=== PATIENT | male | born 1965 | race Caucasian/White ===

== ENCOUNTER 2017-12-21 16:19 | Observation (INO) | payer OTHER, SELFPAY ==
[~2017-12-21 16:19] MED LIST: ISOVUE-370 76%-LOCM 1 ML ONE
[2017-12-21] MEDS ORDERED: Nitroglycerin 0.4 MG TAB (25 Tab Bottle) ONE (16:27)
[2017-12-21 16:43] LABS: #Basophils 0.1 thou/uL (0.0-0.2); #Eosinphils 0.2 thou/uL (0.0-0.7); #Lymphocytes 2.5 thou/uL (1.20-3.40); #Monocytes 1.5 thou/uL (0.11-0.59); #Neutrophils 12.3 thou/uL (1.40-6.50); %Basophils 0.4 % (0.0-1.0); %Eosinophils 1.4 % (0.0-10.0); %Lymphocytes 15.1 % (21.0-51.0); %Monocytes 9.1 % (0.0-10.0); %Neutrophils 73.9 % (42.0-75.0); Mean Corpuscular HGB CONC 33.9 g/dL (32.0-36.0); Mean Corpuscular Hemoglobin 28.9 pg (27.0-31.0); Mean Corpuscular Volume 85.3 fL (78.0-98.0); Mean Platelet Volume 8.7 fL (7.4-10.4); Platelet Count 278 thou/uL (130-400); Red Blood Cell (RBC) Count 5.19 mill/uL (4.70-6.10); White Blood Cell (WBC) Count 16.7 thou/uL (4.8-10.8)
--- NOTE | 2017-12-21 16:44 | RAD ---
CHEST ONE VIEW: 12/21/17 HISTORY: Chest pain. COMPARISON: 04/22/16. FINDINGS: Diminished lung volumes due to poor inspiratory effect. Results in crowding of the pulmonary vasculat ure. No definite consolidation or masses. No significant pleural effusion. Normal cardiac silhouette when taking technique into consideration. No pneumothorax or osseous abnormalities. IMPRESSION: Diminished lung volumes, likely due to poor inspiratory effect. POS: [facility]
[2017-12-21] MEDS ORDERED: Ondansetron ODT 4 MG TAB ONE (16:55)
[2017-12-21 16:58] LABS: ALT (SGPT) 49 U/L (8-55); AST (SGOT) 37 U/L (5-34); Albumin 4.8 g/dL (3.5-5.0); Alkaline Phosphatase 83 U/L (40-150); Anion Gap 13 mmol/L (10-20); BUN (Urea Nitrogen) 15 mg/dL (8.9-20.6); Bilirubin, Total 0.7 mg/dL (0.2-1.2); Calc. Creatinine Clearance 0 mL/min (70-130); Calcium 9.7 mg/dL (7.8-10.44); Carbon Dioxide 30 mmol/L (22-29); Chloride 98 mmol/L (98-107); Estimated GFR-MDRD 69; Glucose 272 mg/dL (70-105); Protein, Total 7.8 g/dL (6.0-8.3); Sodium 137 mmol/L (136-145)
[2017-12-21 17:03] LABS: Troponin I Less than 0.010 ng/mL (< 0.028)
[2017-12-21] MEDS ORDERED: Fentanyl 100 MCG/2 ML VIAL ONE ×2 (17:42→18:31)
--- NOTE | 2017-12-21 17:53 | CT ---
CTA THORAX WITH CONTRAST CTA ABDOMEN WITH CONTRAST: DATE: 12/21/17 TIME: 5:18 p.m. (Computed Tomographic Angiography, chest(noncoronary) with contrast material, and image postprocessin g) (Computed Tomographic Angiography, abdomen with contrast material, and image postprocessing) 3D MIP reconstructions. HISTORY: 52-year-old male with chest pain, abdominal pain, abdominal distention, and diaphoresis. Dyspnea. TECHNIQUE: IV injection of iodinated contrast: 100 mL Isovue 370. Arterial phase bolus chasing technique. Scan acquisition from top of top of aortic arch to iliac crests. FINDINGS: There is no aneurysm, dissection, or rupture, of the thoracic aorta or abdominal aorta. There is ecta damien of the ascending aorta, but no significant atherosclerotic plaque is visualized in the aorta. Baljeet ateral renal arteries, superior mesenteric artery, and celiac artery, are also normal in appearance. There is no thrombus in the pulmonic trunk or the left and right main pulmonary arteries, but their p roximal and distal branches cannot be evaluated for pulmonary thromboembolism because the IV contrast bolus was timed for the aorta rather than the pulmonary arteries, and also because of significant br eathing motion artifact. No consolidation, pneumothorax, or pleural effusion. Trachea and left and ri ght mainstem bronchi are patent. Thoracic and visualized upper and mid lumbar vertebral body heights are maintained; no compression fracture. No destructive osseous lesion of the ribs or sternum. Small sliding hiatal hernia. No mediastinal lymphadenopathy. Liver is enlarged and has diffusely low attenu ation representing fatty liver. The gallbladder is very distended, but there is no wall thickening or pericholecystic edema. Pancreas, bilateral kidneys, adrenals, and spleen, are normal. No free fluid identified in the upper and mid abdominal cavity. No small bowel dilation visualized. No pneumoperito neum. No ascites visualized. (please note, pelvis was not included). IMPRESSION: 1. No aortic dissection, aneurysm or rupture. 2. Very distended gallbladder. 3. Hepatic steatosis and hepatomegaly. 4. Small sliding hiatal hernia. jn[] POS: [facility]
[2017-12-21] MEDS ORDERED: Ketorolac Tromethamine 30 MG/ML VIAL ONE (18:49)
[2017-12-21] MEDS ORDERED: Levofloxacin 500 mg/D5W 100 ml Premix Bag ONE (18:49)
[2017-12-21] MEDS ORDERED: Acetaminophen 1,000 MG in Premix Bag 1 BAG IVPB SCH (19:00)
[2017-12-21 19:36] LABS: CK (CPK) 651 U/L (30-200)
[2017-12-21] MEDS ORDERED: Morphine 4 MG/ML Carpuject IVP PRN (19:57)
[2017-12-21] MEDS ORDERED: Dextrose 5% in Water 1,000 ML IV PRN (19:57)
[2017-12-21] MEDS ORDERED: hydrALAZINE 20 MG/ML VIAL SLOW IVP PRN (19:57)
[2017-12-21] MEDS ORDERED: Ondansetron HCl/PF 4 MG/2 ML Vial IVP PRN (19:57)
[2017-12-21] MEDS ORDERED: Dextrose 50% Abboject 50 ML SYRINGE SLOW IVP PRN (19:57)
[2017-12-21] MEDS ORDERED: HumaLOG 300 UNITS/3 ML VIAL SC PRN (19:57)
[2017-12-21] MEDS ORDERED: Morphine 4 MG/ML Carpuject SLOW IVP PRN (20:00)
[2017-12-21] MEDS ORDERED: Enoxaparin Sodium 40 MG/0.4 ML SYRINGE SC SCH (21:00)
--- NOTE | 2017-12-21 21:13 | ULT ---
ULTRASOUND ABDOMEN LIMITED: (RIGHT UPPER QUADRANT) 12/21/17 HISTORY: Right upper quadrant abdominal pain in 52-year-old male. FINDINGS: The study is very limited because patient's inability to suspend respirations, large body habitus, an d inability to be rolled into decubitus positions. The gallbladder is distended and contains a cluste r of calculi, several millimeters in size each, in the dependent portion of the body. Unable to deter mine whether they are mobile or not because of limited mobility. Positive tenderness over the gallbla dder. Gallbladder wall thickness is normal. There is a structure that appears to be a dilated common duct, 8 mm in caliber. Pancreas is not visualized. Hepatic echogenicity is diffusely increased consis tent with fatty liver. There is an intermediate to low echogenicity linear band across the left lobe of the liver. Uncertain whether this is the falciform ligament or a thrombosed vein. No hydronephrosi s of the right kidney. IMPRESSION: 1. Cholelithiasis within a distended gallbladder, with tenderness over the area. 2. Hepatic steatosis and hepatomegaly. 3. Apparently dilated common duct 8 mm, raising the possibility of choledocholithiasis. 4. Linear band across left hepatic lobe. See above comments. KASHIF Albright POS: [facility]
[2017-12-21 22:26] LABS: Lactic Acid 2.9 mmol/L (0.5-2.2)
[2017-12-21] MEDS: Famotidine/PF 20 mg/2ml Vial SLOW IVP SCH (22:43)
[2017-12-21] MEDS: Lactated Ringer's 1,000 ML IV SCH (22:44)
[2017-12-21] MEDS: Acetaminophen 1,000 MG in Premix Bag 1 BAG IVPB SCH (22:44)
[2017-12-21] MEDS: Ketorolac Tromethamine 30 MG/ML VIAL IVP SCH (22:44)
--- NOTE | 2017-12-22 02:28 | HP ---
HISTORY OF PRESENT ILLNESS: A 52-year-old male lives in [facility], single, here with his mother and desmond condon. Patient works in construction. He has had some occasional indigestion and upper abdominal d iscomfort infrequently, but on this occasion after eating salad, cheese and burger, experienced acute onset of upper abdominal pain, epigastric, right upper quadrant with nausea. It hurts with deep jesus athing. He was evaluated in the emergency room and underwent a CT dissection protocol that revealed a very distending gallbladder, hepatomegaly, hepatic steatosis, but no dissection or aneurysm. The p atient subsequently underwent gallbladder ultrasound revealing 8 mm bile duct with multiple stones. Common bile duct was 8 mm. Findings are consistent with acute cholecystitis. White count 16, hemoglobin 15. Sodium 137, BUN an d creatinine 15 and 1.12. Liver function tests essentially normal. ALLERGIES: None. TOBACCO: None. ALCOHOL: None. MEDICATIONS: Metformin 500 b.i.d., hydrochlorothiazide 12.5 mg daily, atorvastatin 10 mg a day. PAST MEDICAL HISTORY: Hypertension, diabetes, elevated cholesterol. Echocardiogram 04/23/2016, Dr. Sher, normal LV function, mild to borderline left atrial dilatation, t race mitral valve regurgitation, mild tricuspid and pulmonary regurgitation. Given that he had admis tod in 2016 where he had chest pain, probably cocaine use. PHYSICAL EXAMINATION: VITAL SIGNS: 140/78, heart rate 80, respiratory rate 20. HEAD, EYES, EARS, NOSE AND THROAT: Unremarkable. Sclerae nonicteric. LUNGS: Clear to auscultation. CARDIAC: Regular rate and rhythm. No murmur or gallop. ABDOMEN: Tender right upper quadrant with guarding, positive Chavira's. EXTREMITIES: Unremarkable. ASSESSMENT AND PLAN: Acute cholecystitis and cholelithiasis. Recommend laparoscopic video cholecyst ectomy. Risk of infection, bleeding, visceral biliary injury explained and he consents. We will alverto n this in the morning.
[2017-12-22] MEDS: Ketorolac Tromethamine 30 MG/ML VIAL IVP SCH ×2 (05:28→11:30)
[2017-12-22] MEDS: Acetaminophen 1,000 MG in Premix Bag 1 BAG IVPB SCH ×2 (05:28→11:31)
[2017-12-22] MEDS: Lactated Ringer's 1,000 ML IV SCH ×4 (05:28→20:38)
[2017-12-22 05:56] LABS: ALT (SGPT) 52 U/L (8-55); AST (SGOT) 34 U/L (5-34); Albumin 4.1 g/dL (3.5-5.0); Alkaline Phosphatase 66 U/L (40-150); Anion Gap 11 mmol/L (10-20); BUN (Urea Nitrogen) 14 mg/dL (8.9-20.6); Bilirubin, Total 1.6 mg/dL (0.2-1.2); Calc. Creatinine Clearance 93 mL/min (70-130); Calcium 9.1 mg/dL (7.8-10.44); Carbon Dioxide 29 mmol/L (22-29); Chloride 101 mmol/L (98-107); Estimated GFR-MDRD Greater than 90; Globulin 2.6 g/dL (2.4-3.5); Glucose 241 mg/dL (70-105); Potassium 4.2 mmol/L (3.5-5.1); Protein, Total 6.7 g/dL (6.0-8.3); Sodium 137 mmol/L (136-145)
[2017-12-22 06:26] LABS: #Eosinphils 0.2 thou/uL (0.0-0.7); #Monocytes 1.9 thou/uL (0.11-0.59); #Neutrophils 11.7 thou/uL (1.40-6.50); %Basophils 0.1 % (0.0-1.0); %Eosinophils 1.1 % (0.0-10.0); %Lymphocytes 12.7 % (21.0-51.0); %Monocytes 12.1 % (0.0-10.0); Hemoglobin 14.2 g/dL (14.0-18.0); Mean Corpuscular HGB CONC 34.5 g/dL (32.0-36.0); Mean Corpuscular Hemoglobin 29.9 pg (27.0-31.0); Mean Corpuscular Volume 86.6 fL (78.0-98.0); Mean Platelet Volume 8.9 fL (7.4-10.4); Platelet Count 229 thou/uL (130-400); RBC Distribution Width 13.1 % (11.5-14.5); Red Blood Cell (RBC) Count 4.74 mill/uL (4.70-6.10); White Blood Cell (WBC) Count 15.8 thou/uL (4.8-10.8)
[2017-12-22] MEDS: Famotidine/PF 20 mg/2ml Vial SLOW IVP SCH (10:19)
[2017-12-22 12:58] VITALS: BMI 39.2
[2017-12-22] MEDS ORDERED: Fentanyl 100 MCG/2 ML VIAL ONE (13:42)
[2017-12-22] MEDS ORDERED: Bupivacaine HCl 0.5%/Epinephrine 1:200,000/PF 30 ml Vial ONE (13:51)
[2017-12-22] MEDS ORDERED: Iothalamate Meglumine 60% 50 ML VIAL FS ONE (13:51)
[2017-12-22] MEDS ORDERED: Ondansetron HCl/PF 4 MG/2 ML Vial IVP PRN ×2 (14:03→16:27)
[2017-12-22] MEDS ORDERED: Promethazine HCl 25 MG/ML VIAL SLOW IVP PRN ×2 (14:03→16:27)
[2017-12-22] MEDS ORDERED: Promethazine HCl 25 MG/ML VIAL IM PRN ×2 (14:03→16:27)
[2017-12-22] MEDS ORDERED: Lidocaine 1% PF 5 ML VIAL ONE (15:47)
[2017-12-22] MEDS ORDERED: Dexamethasone 20 MG/5 ML VIAL ONE (15:47)
[2017-12-22] MEDS ORDERED: Ondansetron HCl/PF 4 MG/2 ML Vial ONE (15:47)
[2017-12-22] MEDS ORDERED: Succinylcholine Chloride 20 MG/ML 10 ml SYRINGE FS ONE (15:47)
[2017-12-22] MEDS ORDERED: PROPOFOL 200 MG/20 ML VIAL ONE (15:47)
[2017-12-22] MEDS ORDERED: Albumin 5% 500 ML ONE (15:57)
[2017-12-22] MEDS ORDERED: traMADol HCl 50 MG TAB PO PRN (16:25)
[2017-12-22] MEDS ORDERED: Ketorolac Tromethamine 30 MG/ML VIAL IVP PRN (16:29)
[2017-12-22 17:40] LABS: Hemoglobin 12.8 g/dL (14.0-18.0)
[2017-12-22] MEDS: metFORMIN 500 MG TAB PO SCH (18:13)
[2017-12-22] MEDS: Ibuprofen 600 MG TAB PO PRN (18:13)
[2017-12-22] MEDS: Acetaminophen 500 MG TAB PO PRN (18:13)
[2017-12-22] MEDS ORDERED: Atorvastatin Calcium 10 MG TAB PO SCH (21:00)
--- NOTE | 2017-12-23 00:35 | OP ---
PREOPERATIVE DIAGNOSES: Acute cholecystitis, cholelithiasis, bile duct 8 mm, bilirubin increased to 1.6. POSTOPERATIVE DIAGNOSES: Acute cholecystitis, cholelithiasis, bile duct 8 mm, bilirubin increased to 1.6. PROCEDURES: Laparoscopic video cholecystectomy, normal intraoperative cholangiograms. Glucagon admi nistered by Anesthesia. Fluoroscopy used, normal bile duct, good emptying into the duodenum without filling defects. Notes fatty liver, intrahepatic gallbladder, abundant hepatic bleeding, 700 mL bloo d loss, 2 wrists were used. Good hemostasis noted at the end of the procedure. SURGEON: Dr. Joshua Houston. ANESTHESIA: General. Local anesthesia 0.5% Marcaine with epinephrine 30 mL. PROCEDURE IN DETAIL: The patient was taken to the operating room where under general anesthesia, abd omen was prepared with ChloraPrep, draped in routine fashion. Local anesthetic infiltrated into skin and subcutaneous tissue about each port site. Infraumbilical incision made. Pneumoperitoneum to 15 mmHg obtained with Veress needle, replacing it with a 5 port and laparoscope inserted. Right subxip hoid incision made and 11 port placed. Right subcostal incision made mid clavicular anterior axillar y lines and 5 mm ports placed. Fundus of gallbladder was tense and could not be grasped. It was dec ompressed of clear fluid. Fundus grasped and reflected cephalad. Infundibulum grasped and reflected laterally. There were omental adhesions taken down carefully using cautery for hemostasis, some ble eding from this point, it was reflected laterally was appreciated. There were several stones blockin g the gallbladder outlet. Cystic artery and duct doubly clipped and dissected free. Critical view o btained. Cystic artery double clipped proximally, singly, distally divided. Cystic duct dissected f ree and remaining cystic duct and cholangiocath inserted and cholangiogram was obtained using fluoros copy revealing the above findings. Cholangiocatheter removed. Cystic duct stump doubly clipped. Cy stic artery and duct, dividing all and gallbladder dissected free from liver bed using cautery. The fundus of gallbladder was intrahepatic and dissection was difficult. Remainder of the gallbladder on several occasions, there are several small stones, they were grasped and discarded. I have sent it to pathology. There was bleeding from hepatic sinuses, control with high cautery wattage. Gallbladd er removed, placed in Endobag and submitted to pathology. Multiple stones removed and submitted to p athology. Prolonged period of time was spent and getting hemostasis, and irrigating cautery. After obtaining good hemostasis, 2 cancers Kirill was placed in the liver bed. Good hemostasis noted at th e end of the procedure. Irrigant and pneumoperitoneum evacuated. All this was removed. Subxiphoid fascia approximated with [id number] suture 0 Vicryl and two needle. Good hemostasis noted as al l skin incisions approximated with interrupted subdermal 4-0 Monocryl and DermaGlue applied.
[2017-12-23] MEDS: traMADol HCl 50 MG TAB PO PRN ×2 (01:02→07:45)
[2017-12-23] MEDS: Ibuprofen 600 MG TAB PO PRN ×2 (01:02→07:45)
[2017-12-23 06:29] LABS: ALT (SGPT) 128 U/L (8-55); AST (SGOT) 128 U/L (5-34); Albumin 3.9 g/dL (3.5-5.0); Alkaline Phosphatase 66 U/L (40-150); Anion Gap 12 mmol/L (10-20); BUN (Urea Nitrogen) 12 mg/dL (8.9-20.6); Bilirubin, Total 1.5 mg/dL (0.2-1.2); Calc. Creatinine Clearance 207 mL/min (70-130); Calcium 9.3 mg/dL (7.8-10.44); Carbon Dioxide 30 mmol/L (22-29); Chloride 99 mmol/L (98-107); Estimated GFR-MDRD Greater than 90; Globulin 2.6 g/dL (2.4-3.5); Glucose 279 mg/dL (70-105); Potassium 4.2 mmol/L (3.5-5.1); Protein, Total 6.5 g/dL (6.0-8.3); Sodium 137 mmol/L (136-145)
[2017-12-23 06:36] LABS: #Lymphocytes 0.9 thou/uL (1.20-3.40); #Monocytes 1.7 thou/uL (0.11-0.59); #Neutrophils 11.6 thou/uL (1.40-6.50); %Eosinophils 0.1 % (0.0-10.0); %Lymphocytes 6.5 % (21.0-51.0); %Monocytes 11.7 % (0.0-10.0); %Neutrophils 81.7 % (42.0-75.0); Hemoglobin 11.9 g/dL (14.0-18.0); Mean Corpuscular HGB CONC 34.5 g/dL (32.0-36.0); Mean Corpuscular Volume 86.7 fL (78.0-98.0); Platelet Count 215 thou/uL (130-400); RBC Distribution Width 12.9 % (11.5-14.5); Red Blood Cell (RBC) Count 3.96 mill/uL (4.70-6.10); White Blood Cell (WBC) Count 14.2 thou/uL (4.8-10.8)
--- NOTE | 2017-12-23 07:33 | RAD ---
INTRAOPERATIVE CHOLANGIOGRAM: HISTORY: A 52-year-old male with a history of gallstones. Single portable fluoroscopic spot images presented. The common bile duct and visualized intrahepatic ducts are not dilated. There is emptying of the duodenum. No evidence for retained calculus. IMPRESSION: Unremarkable intraoperative cholangiogram. No evidence for retained calculus. POS: [facility]
[2017-12-23] MEDS: Acetaminophen 500 MG TAB PO PRN (07:45)
[2017-12-23] MEDS: metFORMIN 500 MG TAB PO SCH (08:50)
[2017-12-23] MEDS ORDERED: Hydrochlorothiazide 25 MG TAB PO SCH (09:00)
[2017-12-23 11:35] VITALS: BP 124/80; TEMP 97.9
--- NOTE | 2017-12-23 12:46 | DIS ---
ADMIT DIAGNOSIS: Cholecystitis. DISCHARGE DIAGNOSIS: Cholecystitis. PROCEDURES: Laparoscopic cholecystectomy with intraoperative cholangiogram by Dr. Houston without com plication. CONDITION AT DISCHARGE: Improved. STAFF: Dr. Joshua Houston HOSPITAL COURSE: The patient underwent a laparoscopic cholecystectomy with intraoperative cholangiog lisandra on 12/22/2017 for severe acute cholecystitis. On postop day #1 he is doing well. His hemoglobin is stable in the 11s. His pain is tolerable. He is tolerating regular diet. He is discharged to [facility]. His liver tests were elevated on admission, but he has normal cholangiogram. He will follow up with Dr. Houston in 2 weeks. Prescriptions already written by Dr. Houston.
--- NOTE | 2017-12-24 15:20 | EKG ---
Test Reason : Blood Pressure : / mmHG Vent. Rate : 096 BPM Atrial Rate : 096 BPM P-R Int : 154 ms QRS Dur : 082 ms QT Int : 328 ms P-R-T Axes : 032 003 013 degrees QTc Int : 414 ms Normal sinus rhythm Possible Anterior infarct , age undetermined Abnormal ECG Confirmed by AMI RAM MD ([id number]), photo editor PABLO GILBERT ([id number]) on 12/24/2017 3:19:44 PM Referred By: Confirmed By:AMI RAM MD
--- NOTE | 2017-12-28 17:30 | PRG ---
DATE OF SERVICE: 12/28/2017 SUBJECTIVE: Vu Navarro is seen today. He was readmitted by Dr. Ross in my absence on 8. The patient underwent laparoscopic cholecystectomy, normal cholangiogram on 12/22/2017. He had i ntraoperative bleeding due to intrahepatic gallbladder and normal cholangiograms. On readmission, hi s bilirubin was 1.8, yesterday 1.6 and it was not checked again today. On admission, two days ago, h is white count was 18, today is 22,000. Hemoglobin on admission and in last hospitalization was 14, today is 11.2. The patient states that he is dyspneic. He has been placed on vancomycin and meropen em as he is allergic to PENICILLIN. OBJECTIVE: VITAL SIGNS: 97.8 degrees, 90, 170/90, respiratory rate 20. LUNGS: Clear to auscultation. ABDOMEN: Distended. Tenderness in right upper quadrant. EXTREMITIES: Unremarkable. LABORATORY DATA: None today. He has not had a bowel movement since admission. He has not been out of bed except to go the [facility] since admission. I have stressed him the importance of mobility. We will order Lovenox now and da wolf. CAT scan on admission revealed constipation right colon, subhepatic hematoma and atelectasis. Today, we will start MiraLax, give him also magnesium citrate, a dose of Milk of Magnesia, have encou raged him to be out of bed into a chair 5-10 times a day, walking in the hallways 5 or 10 days, have encouraged him to use his bedside incentive spirometry every hour. I have stressed him the importanc e of ambulation. We will discontinue his vancomycin. Continue meropenem. He is on Protonix daily. We will add Lovenox once a day as well as sequential compression devices. We will recheck his abdom inal x-rays and chest x-ray tomorrow. This patient did not show up on my patient list even though he has a patient of mine, requiring operation. Since he is admitted Dr. Ross's service, he did not show up on my patient list.
== END 2017-12-23 12:05 | disposition home or self-care (01) ==
LOC: ERS 16:19 → SURG A 18:56
PROVIDERS: ADMIT Specialist; ATTEND Specialist
PROC: 0FT44ZZ Resection of Gallbladder, Percutaneous Endoscopic Approach (ICD-10-PCS; principal; 2017-12-22)
PROC: BF13YZZ Fluoroscopy of Gallbladder and Bile Ducts using Other Contrast (ICD-10-PCS; 2017-12-22)
DX: K80.12 Calculus of gallbladder with acute and chronic cholecystitis without obstruction (principal); I10 Essential (primary) hypertension; E11.9 Type 2 diabetes mellitus without complications; E78.00 Pure hypercholesterolemia, unspecified; Z79.84 Long term (current) use of oral hypoglycemic drugs; Z79.899 Other long term (current) drug therapy
CPT/HCPCS: 36415; 36416; 47532; 71045; 71275; 76705; 80053; 82550; 82553; 83605; 83690; 84484; 85025; 87040; 88304; 93005; 94760; 96361; 96365; 96367; 96375; 96376; G0378; J0131; J0670; J1100; J1610; J1885; J1956; J2001; J2270; J2405; J2704; J3010; P9045; Q0162; Q9961; S0028

== ENCOUNTER 2017-12-26 00:10 | Inpatient (IN) | payer SELFPAY ==
[2017-12-26 00:48] LABS: #Basophils 0.1 thou/uL (0.0-0.2); #Eosinphils 0.6 thou/uL (0.0-0.7); #Lymphocytes 1.4 thou/uL (1.20-3.40); #Monocytes 2.2 thou/uL (0.11-0.59); %Basophils 0.3 % (0.0-1.0); %Eosinophils 3.2 % (0.0-10.0); %Lymphocytes 7.6 % (21.0-51.0); %Monocytes 11.8 % (0.0-10.0); %Neutrophils 77.1 % (42.0-75.0); Hemoglobin 12.4 g/dL (14.0-18.0); Mean Corpuscular HGB CONC 32.2 g/dL (32.0-36.0); Mean Corpuscular Hemoglobin 27.9 pg (27.0-31.0); Mean Corpuscular Volume 86.6 fL (78.0-98.0); Mean Platelet Volume 8.4 fL (7.4-10.4); Platelet Count 368 thou/uL (130-400); Red Blood Cell (RBC) Count 4.45 mill/uL (4.70-6.10); White Blood Cell (WBC) Count 18.1 thou/uL (4.8-10.8)
[2017-12-26] MEDS ORDERED: Ondansetron ODT 8 MG TAB ONE (00:58)
[2017-12-26 01:08] LABS: ALT (SGPT) 102 U/L (8-55); AST (SGOT) 59 U/L (5-34); Albumin 3.9 g/dL (3.5-5.0); Alkaline Phosphatase 142 U/L (40-150); Anion Gap 17 mmol/L (10-20); BUN (Urea Nitrogen) 12 mg/dL (8.9-20.6); Bilirubin, Total 1.8 mg/dL (0.2-1.2); Calc. Creatinine Clearance 0 mL/min (70-130); Calcium 9.8 mg/dL (7.8-10.44); Carbon Dioxide 25 mmol/L (22-29); Chloride 95 mmol/L (98-107); Estimated GFR-MDRD Greater than 90; Globulin 3.2 g/dL (2.4-3.5); Glucose 252 mg/dL (70-105); Potassium 3.6 mmol/L (3.5-5.1); Protein, Total 7.1 g/dL (6.0-8.3); Sodium 133 mmol/L (136-145)
[2017-12-26 01:16] LABS: CK (CPK) 122 U/L (30-200); Lipase 15 U/L (8-78)
[2017-12-26 01:21] LABS: Troponin I Less than 0.010 ng/mL (< 0.028)
[2017-12-26 01:30] LABS: CKMB 1.5 ng/mL (0-6.6)
[2017-12-26 05:30] LABS: Bilirubin Small (Negative); Blood, Urine Negative (Negative); Clarity CLEAR (Clear); Glucose, Urine (Dipstick) >=1000 mg/dL (Negative); Leukocyte Negative (Negative); Nitrite Negative (Negative); Protein, Urine (Dipstick) 30 mg/dL (Neg-Trace)
[2017-12-26 05:33] LABS: Bacteria/HPF None Seen HPF (None Seen); Hyaline Casts/LPF 0-3 HYALINE CAST LPF (0-3 Hyaline); Pathc Cast-AUWi Flag 0.14 (0-2.49); Squamous Epithelial None Seen HPF (0-3); WBC/HPF 0-3 HPF (0-3)
[2017-12-26 05:41] LABS: Specific Gravity, Urine 1.048 (1.002-1.036)
[2017-12-26] MEDS ORDERED: cefOXitin 2 GM in Sodium Chloride 0.9% 100 ML IVPB SCH ×2 (05:45→12:00)
[2017-12-26] MEDS: Sodium Chloride 0.9% 1,000 ML IV SCH ×3 (07:19→18:35)
[2017-12-26 07:54] VITALS: BMI 35.4
--- NOTE | 2017-12-26 08:10 | RAD ---
PORTABLE CHEST 1 VIEW: DATE: 12/26/17. TIME: 12:31 a.m. HISTORY: Increased right-sided abdominal pain. Recent cholecystectomy. FINDINGS: Comparison is made with the exam of 12/21/17. A right-sided pleural effusion is seen. The heart size is stable. No pneumothoraces are seen. The left lung is clear. POS: [facility]
--- NOTE | 2017-12-26 09:05 | CT ---
PRELIMINARY REPORT/[facility]/EMERGENTY AFTER-HOURS PROCEDURE CT Abdomen and Pelvis With Intravenous Contrast CLINICAL HISTORY: 52 years old, male; Pain; Abdominal pain; Localized; Right; Prior surgery; Surgery date: 3-7 days pos t-operative; Patient HX: Er 7; 52 yo m presents to ed with abdominal pain. PT reports he had his gall bladder removed on tuesday. PT reports a sharp intermittent pain in his right upper quadrant that has a gradual onset. PT reports soreness since tuesday but abnormal pain that started around 10 pm l ast night. PT reports normal food intake but he hasn't defecated since surgery. PT reports he has bee n passing gas. PT reports normal urination. PT denies fever, denies chest pain. PT reports he is swea ting a lot. PT reports HX of diabetes TECHNIQUE: Axial computed tomography images of the abdomen and pelvis with intravenous contrast. Coronal reforma tted images were created and reviewed. COMPARISON: No relevant prior studies available. FINDINGS: Lower thorax: Moderate right pleural effusion with associated atelectasis is seen. Mild atelectasis i s seen in the left lung base. Mild pericardial effusion is seen. ABDOMEN: Liver: Severe diffuse fatty infiltration of the liver is seen. Gallbladder and bile ducts: Cholecystectomy clips are seen. Fluid collection with several foci of gas are noted in the cholecystectomy fossa measuring 9 x 5 x 4 cm. Pancreas: Mild fatty replacement of the pancreas is seen. Spleen: Normal. No splenomegaly. Adrenals: Normal. No mass. Kidneys and ureters: Normal. No hydronephrosis. Stomach and bowel: Moderate amount of stool is noted in the colon. Gaseous distention of the stomach is seen. Mildly distended small bowel loops in the left upper quadrant are nonspecific. No definite e vidence of obstruction. Appendix: No evidence of appendicitis. PELVIS: Bladder: Unremarkable as visualized. Reproductive: Unremarkable as visualized. ABDOMEN and PELVIS: Intraperitoneal space: No evidence of free air in the abdomen. Bones/joints: No acute fracture. No dislocation. Soft tissues: Mild fat stranding and subcutaneous emphysema in the anterior abdominal wall likely rep resent postsurgical changes. Vasculature: Normal. No abdominal aortic aneurysm. Lymph nodes: Normal. No enlarged lymph nodes. IMPRESSION: 1. Fluid collection with several foci of gas in the cholecystectomy fossa likely represents an absces s. 2. Moderate right pleural effusion with associated atelectasis. 3. Severe hepatic steatosis. 4. Mildly distended small bowel loops in the left upper quadrant are nonspecific. No definite evidenc e of obstruction. 5. Mild fat stranding and subcutaneous emphysema in the anterior abdominal wall likely represent postsurgical changes. Infection is not excluded. THIS REPORT CONTAINS FINDINGS THAT MAY BE CRITICAL TO PATIENT CARE. The findings were verbally commun icated via telephone conference with ROSSY HUGHES at 4:48 AM CDT on 12/26/2017. The findings were ac knowledged and understood. Thank you for allowing us to participate in the care of your patient. Dictated and Authenticated by: Deirdre Vazquez MD 12/26/2017 4:48 AM Central Time ([place] & [place]) FINAL REPORT CT ABDOMEN AND PELVIS WITH ORAL AND IV CONTRAST: Date: 12/26/17 FINDINGS/IMPRESSION: I agree with the preliminary report given by Skye. POS: [facility]
[2017-12-26] MEDS ORDERED: Ondansetron HCl/PF 4 MG/2 ML Vial IVP PRN (11:40)
[2017-12-26] MEDS ORDERED: Acetaminophen 1,000 MG in Premix Bag 1 BAG IVPB SCH (13:00)
[2017-12-26] MEDS ORDERED: Ketorolac Tromethamine 30 MG/ML VIAL IVP SCH (13:00)
[2017-12-26] MEDS ORDERED: ISOVUE-370 76%-LOCM 1 ML ONE (13:45)
[2017-12-26] MEDS ORDERED: Fentanyl 100 MCG/2 ML VIAL ONE (14:03)
[2017-12-26] MEDS: Ketorolac Tromethamine 30 MG/ML VIAL IVP SCH ×2 (14:23→22:02)
[2017-12-26] MEDS ORDERED: Fentanyl 100 MCG/2 ML VIAL SLOW IVP SCH (14:30)
[2017-12-26] MEDS: Meropenem 2 GM, Admixture Fee 1 EACH in Sodium Chloride 0.9% 100 ML IVPB SCH ×2 (15:47→22:02)
[2017-12-26] MEDS: HYDROmorphone 10 mg/100 ml CADD IV PRN (15:52)
[2017-12-26] MEDS ORDERED: Dextrose 50% Abboject 50 ML SYRINGE SLOW IVP PRN (17:35)
[2017-12-26] MEDS ORDERED: Dextrose 5% in Water 1,000 ML IV PRN (17:35)
--- NOTE | 2017-12-26 17:42 | NM ---
NUCLEAR MEDICINE HIDA SCAN: HISTORY: Evaluate for biliary leak. COMPARISON: CT abdomen and pelvis from the same day. FINDINGS: Whole body imaging was performed after the intravenous administration of 5.2 millicuries of technetiu m 99m mebrofenin intravenously. There is normal hepatic uptake of the radiotracer. There is no evidence of leak. No gallbladder is present. Radiotracer is seen within the proximal small bowel quickly. No evidence of leak. IMPRESSION: No evidence of leak. POS: [facility]
--- NOTE | 2017-12-26 17:58 | HP ---
CHIEF COMPLAINT: Abdominal pain. HISTORY OF PRESENT ILLNESS: This is a 52-year-old male who is status post laparoscopic cholecystecto my with intraoperative cholangiogram by Dr. Houston on 12/22/2017. He had presented with acute cholec ystitis and had significantly inflamed gallbladder at the time of surgery. He operative cholangiogra m was normal and he had borderline elevation of his liver test preoperatively. There was moderate am ount of blood loss during the procedure secondary to the amount of inflammatory change in the liver b ed. His postop day 1 hemoglobin was stable. He was doing well and discharged home by myself. He no w returns with 10/10 sharp pain in the right upper quadrant, subjective fever, no chills, not hungry, hurts to move. He was tachycardic in the emergency room. His pulse is now improved. PAST MEDICAL HISTORY, SURGICAL HISTORY, SOCIAL HISTORY: See previous H&P. PHYSICAL EXAMINATION: VITAL SIGNS: Blood pressure is 148/86, pulse 88, respirations 20. He is afebrile. O2 sat on 2 lite rs is 95%. HEENT: Sclerae are anicteric. Oropharynx clear. NECK: No neck lymphadenopathy. CHEST: Clear. HEART: Regular rate and rhythm. ABDOMEN: Soft, tender right upper quadrant. The wounds are healing well, no infection. He has loca lized right upper quadrant with guarding, but no rebound tenderness. No diffuse peritoneal signs. LABORATORY DATA: White cell count is 18, hemoglobin 12, platelet count is 368. Sodium 133, potassiu m 3.6, creatinine 0.73. His glucose is 252. Bilirubin 1.8, AST and ALT are 59 and 102. Alkaline ph osphatase is normal. Urine shows ketones. CT scan shows air and fluid in the right upper quadrant. ASSESSMENT: Severe postop abdominal pain after cholecystectomy for locally inflamed cholecystitis. PLAN: Admit to the hospital, broad spectrum antibiotics. We will obtain HIDA scan to rule out a leatha e duct leak. If that is positive, he will undergo GI consult for ERCP.
[2017-12-27 06:13] LABS: ALT (SGPT) 67 U/L (8-55); AST (SGOT) 38 U/L (5-34); Albumin 3.1 g/dL (3.5-5.0); Alkaline Phosphatase 174 U/L (40-150); Anion Gap 16 mmol/L (10-20); BUN (Urea Nitrogen) 12 mg/dL (8.9-20.6); Bilirubin, Total 1.6 mg/dL (0.2-1.2); Calc. Creatinine Clearance 252 mL/min (70-130); Calcium 8.8 mg/dL (7.8-10.44); Carbon Dioxide 23 mmol/L (22-29); Chloride 99 mmol/L (98-107); Estimated GFR-MDRD Greater than 90; Globulin 2.8 g/dL (2.4-3.5); Glucose 221 mg/dL (70-105); Potassium 3.9 mmol/L (3.5-5.1); Protein, Total 5.9 g/dL (6.0-8.3); Sodium 134 mmol/L (136-145)
[2017-12-27 06:37] LABS: Band 18 % (5-11); Hemoglobin 10.9 g/dL (14.0-18.0); Lymphocytes 10 % (21-51); MDiff Complete? YES; Mean Corpuscular HGB CONC 33.7 g/dL (32.0-36.0); Mean Corpuscular Hemoglobin 29.8 pg (27.0-31.0); Mean Corpuscular Volume 88.5 fL (78.0-98.0); Metamyelocyte 1 % (0-0); Monocytes 11 % (0-10); Neutrophil 60 % (42-75); PLT Morphology Comment Appears Adequate; Platelet Count 295 thou/uL (130-400); Red Blood Cell (RBC) Count 3.67 mill/uL (4.70-6.10)
[2017-12-27] MEDS: Meropenem 2 GM, Admixture Fee 1 EACH in Sodium Chloride 0.9% 100 ML IVPB SCH ×3 (06:47→21:53)
[2017-12-27] MEDS: Ketorolac Tromethamine 30 MG/ML VIAL IVP SCH (06:47)
[2017-12-27] MEDS: HYDROmorphone 10 mg/100 ml CADD IV PRN ×2 (07:48→21:54)
[2017-12-27] MEDS ORDERED: Ketorolac Tromethamine 30 MG/ML VIAL IVP PRN (09:00)
[2017-12-27] MEDS ORDERED: Vancomycin HCl 1 GM in Sodium Chloride 0.9% 250 ML 250 ML IVPB SCH (09:00)
[2017-12-27] MEDS ORDERED: Pantoprazole 40 MG GRANULES PACKET PO SCH (09:00)
[2017-12-27] MEDS ORDERED: Vancomycin HCl 2.5 GM in Sodium Chloride 0.9% 500 ML IVPB SCH (10:00)
[2017-12-27] MEDS ORDERED: VANCOMYCIN IVPB PRN (10:02)
--- NOTE | 2017-12-27 11:09 | PRG ---
DATE OF SERVICE: 12/27/2017 SUBJECTIVE: Mr. Navarro is still complaining of pain. He just got up and took a shower this morning. He says he feels hot. Preliminary culture, blood culture shows gram-positive cocci in clusters kit t is 1 of 2 bottles. He still notes [id number] pain in the right upper quadrant. Nausea is improved and he is hungry. His HIDA scan was negative. PHYSICAL EXAMINATION: VITAL SIGNS: Afebrile. His vital signs are stable. ABDOMEN: Soft, tender in the right upper quadrant with localized guarding, without rebound. His wou nds are healing well. LABORATORY DATA: His infectious count, white cell count is 19, and again preliminary cultures show g lisandra-positive cocci in clusters, 1 of 2 bottles. ASSESSMENT: Readmission for severe right upper quadrant pain and fluid collection, likely hematoma. There is air in it, but no abscess to drain. He has had a negative HIDA scan for bile leak. PLAN: Continue broad-spectrum antibiotics. I added vein given his blood culture results. We will a llow him to do clear liquids today. He is on a [employer]. The pain is so severe. I suspect his symptoms will gradually improve. If not, if he worsens clinically, then undergo washout versus drain placemen t.
[2017-12-27] MEDS: HumaLOG 300 UNITS/3 ML VIAL SC PRN (17:42)
[2017-12-28] MEDS: HumaLOG 300 UNITS/3 ML VIAL SC PRN ×4 (02:24→21:42)
[2017-12-28] MEDS: Meropenem 2 GM, Admixture Fee 1 EACH in Sodium Chloride 0.9% 100 ML IVPB SCH ×3 (05:55→21:40)
[2017-12-28 06:32] LABS: Anion Gap 15 mmol/L (10-20); BUN (Urea Nitrogen) 9 mg/dL (8.9-20.6); Calc. Creatinine Clearance 249 mL/min (70-130); Calcium 9.1 mg/dL (7.8-10.44); Carbon Dioxide 24 mmol/L (22-29); Chloride 96 mmol/L (98-107); Estimated GFR-MDRD Greater than 90; Glucose 206 mg/dL (70-105); Potassium 3.6 mmol/L (3.5-5.1); Sodium 131 mmol/L (136-145)
[2017-12-28 06:34] LABS: Band 8 % (5-11); Eosinophils 3 % (0-10); Hemoglobin 11.2 g/dL (14.0-18.0); Lymphocytes 9 % (21-51); MDiff Complete? YES; Mean Corpuscular HGB CONC 32.2 g/dL (32.0-36.0); Mean Corpuscular Hemoglobin 28.2 pg (27.0-31.0); Mean Corpuscular Volume 87.5 fL (78.0-98.0); Mean Platelet Volume 7.6 fL (7.4-10.4); Metamyelocyte 1 % (0-0); Monocytes 15 % (0-10); Neutrophil 64 % (42-75); PLT Morphology Comment Appears Adequate; Platelet Count 399 thou/uL (130-400); Red Blood Cell (RBC) Count 3.97 mill/uL (4.70-6.10); White Blood Cell (WBC) Count 22.8 thou/uL (4.8-10.8)
[2017-12-28] MEDS: HYDROmorphone 10 mg/100 ml CADD IV PRN (08:32)
[2017-12-28] MEDS ORDERED: Acetaminophen 1,000 MG in Premix Bag 1 BAG IVPB PRN (14:37)
[2017-12-28] MEDS ORDERED: Acetaminophen 500 MG TAB PO PRN (14:37)
[2017-12-28] MEDS ORDERED: Milk Of Magnesia 30 ML UDCUP PO PRN (14:37)
[2017-12-28] MEDS ORDERED: Magnesium Citrate 300 ML BOT PO SCH (15:15)
[2017-12-28] MEDS: Ketorolac Tromethamine 30 MG/ML VIAL IVP SCH (17:10)
[2017-12-28] MEDS ORDERED: Enoxaparin Sodium 40 MG/0.4 ML SYRINGE SC SCH (21:00)
[2017-12-29] MEDS: Ketorolac Tromethamine 30 MG/ML VIAL IVP SCH ×4 (01:14→17:45)
[2017-12-29] MEDS: HYDROmorphone 10 mg/100 ml CADD IV PRN (02:48)
[2017-12-29 06:08] LABS: ALT (SGPT) 50 U/L (8-55); AST (SGOT) 39 U/L (5-34); Albumin 2.9 g/dL (3.5-5.0); Alkaline Phosphatase 214 U/L (40-150); Anion Gap 13 mmol/L (10-20); BUN (Urea Nitrogen) 9 mg/dL (8.9-20.6); Bilirubin, Total 1.2 mg/dL (0.2-1.2); Calc. Creatinine Clearance 242 mL/min (70-130); Calcium 8.7 mg/dL (7.8-10.44); Carbon Dioxide 27 mmol/L (22-29); Chloride 96 mmol/L (98-107); Estimated GFR-MDRD Greater than 90; Globulin 2.8 g/dL (2.4-3.5); Glucose 185 mg/dL (70-105); Potassium 3.5 mmol/L (3.5-5.1); Protein, Total 5.7 g/dL (6.0-8.3); Sodium 132 mmol/L (136-145)
[2017-12-29] MEDS: Meropenem 2 GM, Admixture Fee 1 EACH in Sodium Chloride 0.9% 100 ML IVPB SCH ×3 (06:08→21:38)
[2017-12-29 06:39] LABS: Mean Corpuscular HGB CONC 33.4 g/dL (32.0-36.0); Mean Corpuscular Hemoglobin 28.8 pg (27.0-31.0); Mean Corpuscular Volume 86.2 fL (78.0-98.0); Mean Platelet Volume 7.3 fL (7.4-10.4); Platelet Count 364 thou/uL (130-400); RBC Distribution Width 12.9 % (11.5-14.5); Red Blood Cell (RBC) Count 3.48 mill/uL (4.70-6.10); White Blood Cell (WBC) Count 15.4 thou/uL (4.8-10.8)
[2017-12-29 06:55] LABS: Band 8 % (5-11); Eosinophils 2 % (0-10); Lymphocytes 10 % (21-51); MDiff Complete? YES; Monocytes 11 % (0-10); Neutrophil 69 % (42-75)
[2017-12-29] MEDS: Polyethylene Glycol 3350 17 GM Packet PO SCH (08:33)
--- NOTE | 2017-12-29 08:45 | RAD ---
TWO VIEWS CHEST: COMPARISON: 11/26/15. INDICATION: Postoperative pain. FINDINGS: There is a large pleural-based density along the lateral aspect of the right hemithorax with adjacent patchy parenchymal opacification and right basilar density. The left lung is grossly clear. Cardia c silhouette is prominent. IMPRESSION: Prominent abnormal pleural-based density with associated parenchymal opacification involving the adriana rity of the right hemithorax. This favors empyema. Correlate clinically and recommend pulmonary med icine consultation. POS: [facility]
--- NOTE | 2017-12-29 08:50 | RAD ---
ABDOMINAL RADIOGRAPH SERIES: Two View series Four views were provided. INDICATION: Postoperative abdominal pain. FINDINGS: There is air-filled bowel throughout the abdomen and pelvis. There are differential air f luid levels. Colonic air is visualized. No free air detected on the upright. Incidental note of pl eural and parenchymal disease of the inferior right chest. Metallic clips are seen at the right abdomen. IMPRESSION: Air-distended loops of bowel with air fluid levels. There is colonic air, as well. Findings favor a n ileus. Contrast density is seen at the level of the rectosigmoid colon indicating passage of the r ecently ingested enteric contrast. Correlate clinically. POS: [facility]
[2017-12-29] MEDS: HumaLOG 300 UNITS/3 ML VIAL SC PRN (11:43)
[2017-12-29] MEDS ORDERED: ISOVUE-370 76%-LOCM 1 ML ONE (12:55)
[2017-12-29] MEDS ORDERED: Simethicone Chewable 80 MG TAB PO PRN (13:07)
[2017-12-29] MEDS ORDERED: Pepto Bismol Chew TAB PO PRN (13:07)
[2017-12-29] MEDS ORDERED: Bismuth Subs 17.5mg/mL Susp 120 ML BOT PO PRN (13:07)
[2017-12-29] MEDS ORDERED: Mag-Al 1200 mg/1200 mg/30 ML UDCUP PO PRN (13:07)
--- NOTE | 2017-12-29 13:14 | CT ---
CT OF THE CHEST WITH CONTRAST CT OF THE ABDOMEN AND PELVIS WITH CONTRAST: Date: 12/29/17 COMPARISON: Radiograph from 12/29/17 of abdomen and chest. HISTORY: Postoperative abdominal pain and chest pain. Patient had gallbladder surgery recently. Difficulty jesus athing and bad indigestion. TECHNIQUE: 1. Multiple contiguous axial images were obtained in a CT of the chest with contrast. Coronal reform ats were performed. 2. Multiple contiguous axial images were obtained in a CT of the abdomen and pelvis with contrast. C oronal reformats were performed. PO contrast was administered. FINDINGS: CT CHEST: There is low density fluid along the periphery of the right lung, which likely represents a loculated pleural effusion. Adjacent atelectasis is seen. No left pleural effusion is seen. No left-sided infi ltrate is present. The heart is normal in size without focal cardiac abnormality. No hilar or mediast inal lymphadenopathy seen. The chest wall soft tissues are unremarkable. Degenerative changes are see n in the thoracic spine. CT ABDOMEN/PELVIS: Cholecystectomy clips are seen. Along the inferior edge of the liver, in the gallbladder surgical bed , there is a fluid collection measuring 8.3 cm in size which contains small bubbles of air. This coul d represent an abscess, but is poorly circumscribed. This could also represent SurgiSeal material lef t behind at surgery. No biliary dilatation is seen. No focal liver lesions are seen. The kidneys, adrenal glands, spleen, and pancreas are unremarkable. A small amount of free fluid is s een in the pelvis. The large and small bowel are unremarkable. The appendix is normal. No abdominal or pelvic lymphadeno qi are seen. Degenerative changes are seen in the lumbar spine. The abdominal wall soft tissues are unremarkable. IMPRESSION: 1. Moderate right-sided pleural effusion which is partially loculated and is along the peripheral as pect of the right thorax. 2. There is a fluid collection in the surgical bed containing foci of air. This could potentially re present SurgiSeal if this type of material was left behind at surgery. Alternatively, this could repr esent a postoperative abscess. POS: [facility]
[2017-12-29] MEDS ORDERED: HYDROcodone/Acetaminophen 10/325 mg Tablet PO PRN (13:27)
[2017-12-29] MEDS ORDERED: traMADol HCl 50 MG TAB PO PRN ×2 (13:28)
--- NOTE | 2017-12-29 14:42 | PRG ---
DATE OF SERVICE: 12/29/2017 SUBJECTIVE: Mr. Navarro is feeling somewhat better. He wants to try regular food. PHYSICAL EXAMINATION: VITAL SIGNS: Temperature 97.8 degrees, heart rate 124, and 149/89. LUNGS: Diminished breath sounds on the right. CARDIAC: Regular rate and rhythm. ABDOMEN: Slightly protuberant, distended, plus bowel movements, plus bowel sounds, plus flatus. LABORATORY DATA: White count is down from 23,000-15,000 today, hemoglobin is stable at 10. Basic me tabolic profile is unremarkable. Sodium 132, potassium 3.5. Accu-Cheks 199-259 and bilirubin 1.2. IMAGING DATA: Chest x-ray revealed opacification of most of the right lung reyes suggesting empyema . CT scan chest, abdomen, and pelvis was obtained today. There is a loculated pleural effusion on t he right. CT scan of the abdomen revealed fluid collection 8.3 cm in size with some gas bubbles. DISCUSSION: We will discuss with Dr. Hernandez as far as the right hepatic fluid collection whether thi s is a drainable or not. Increase to a regular diet. Await Dr. Uriostegui's opinion as to the right ches t fluid collection. Continue intravenous antibiotics.
[2017-12-29] MEDS: HYDROcodone/Acetaminophen 10/325 mg Tablet PO PRN (17:46)
--- NOTE | 2017-12-29 18:23 | CON ---
DATE OF ADMISSION: 12/26/2017 DATE OF CONSULTATION: 12/29/2017 HISTORY OF PRESENT ILLNESS: Mr. Navarro is a 52-year-old gentleman who underwent laparoscopic cholecy stectomy on 12/21/2017. Postoperatively, he said he began experiencing pain, nausea, and feelings of severe reflux type symptomatology at home and was readmitted within 12 hours of discharge. He has, since being here, had temperatures up to 100, white blood cell count up to 22.8. He has been placed on meropenem. CT scan of the abdomen has been obtained, which shows air fluid levels in the gallblad nic fossa, but also some fluid in the subdiaphragmatic fluid. Formal CT of the chest was performed t tari showing multiloculated right-sided effusion. I have been asked to see him for management strate gy. Currently, the patient is afebrile. He feels some better with antibiotics. He has had a bowel movement. Incisions all are healing nicely. PAST MEDICAL HISTORY: 1. Hypertension. 2. Diabetes. 3. Hypercholesterolemia. 4. Obesity. PAST SURGICAL HISTORY: Laparoscopic cholecystectomy. CURRENT MEDICATIONS: None. SOCIAL HISTORY: He does not use tobacco or alcohol. REVIEW OF SYSTEMS: Negative except as above. PHYSICAL EXAMINATION: GENERAL: Well-developed, well-nourished gentleman, sitting up in the chair in no distress. VITAL SIGNS: Temperature is 97.8, pulse is 100, blood pressure is 149/89. HEENT: Sclerae nonicteric. Pupils equal, round bilaterally. NECK: Supple. CHEST: Diminished breath sounds to the right lower chest. HEART: Rhythm is regular. ABDOMEN: Soft and nontender. Incisions are healing nicely. EXTREMITIES: There is no edema. ASSESSMENT AND PLAN: Multiloculated probable empyema on the right secondary to sympathetic effusion and super infected probably from atelectasis and underlying pneumonia. I have discussed thoracoscopy with decortication with him and he is agreeable to proceed tomorrow.
[2017-12-30] MEDS: Ketorolac Tromethamine 30 MG/ML VIAL IVP SCH ×2 (00:34→05:28)
[2017-12-30] MEDS: Lactated Ringer's 1,000 ML IV SCH ×2 (02:09→18:31)
[2017-12-30] MEDS: HYDROcodone/Acetaminophen 10/325 mg Tablet PO PRN (04:32)
[2017-12-30] MEDS: Meropenem 2 GM, Admixture Fee 1 EACH in Sodium Chloride 0.9% 100 ML IVPB SCH ×3 (05:29→21:44)
[2017-12-30] MEDS ORDERED: Fentanyl 250 MCG/5 ML VIAL ONE ×2 (08:46→10:40)
[2017-12-30] MEDS ORDERED: Nitroglycerin 50 MG/250 ML BOT 0 ML ONE (08:46)
[2017-12-30] MEDS: Polyethylene Glycol 3350 17 GM Packet PO SCH (08:49)
[2017-12-30] MEDS: Pantoprazole 40 MG VIAL IVP SCH (08:49)
[2017-12-30] MEDS ORDERED: Bupivacaine HCl 0.5%/Epinephrine 1:200,000/PF 30 ml Vial ONE (09:47)
[2017-12-30] MEDS ORDERED: Fentanyl 100 MCG/2 ML VIAL SLOW IVP PRN (10:38)
[2017-12-30] MEDS ORDERED: HYDROmorphone 0.5 MG/0.5 ML SYRINGE ONE ×2 (10:41→12:30)
[2017-12-30] MEDS ORDERED: diphenhydrAMINE 25 MG CAP PO PRN (11:39)
[2017-12-30] MEDS ORDERED: Promethazine HCl 25 MG/ML VIAL IM PRN ×2 (11:39→12:10)
[2017-12-30] MEDS ORDERED: Naloxone HCl 0.4 mg/ml Vial IV PRN (11:39)
[2017-12-30] MEDS ORDERED: diphenhydrAMINE 50 MG/ML VIAL IVP PRN (11:39)
[2017-12-30] MEDS ORDERED: diphenhydrAMINE 50 MG/ML VIAL IM PRN (11:39)
[2017-12-30] MEDS ORDERED: Zolpidem Tartrate 5 MG TAB PO PRN (11:39)
[2017-12-30] MEDS ORDERED: Ondansetron HCl/PF 4 MG/2 ML Vial IVP PRN ×2 (11:39→12:10)
[2017-12-30] MEDS ORDERED: Communication Order-Pharmacy FS SCH (11:45)
--- NOTE | 2017-12-30 11:51 | OP ---
DATE OF PROCEDURE: 12/30/2017 PREOPERATIVE DIAGNOSIS: Right empyema. POSTOPERATIVE DIAGNOSIS: Right empyema. PROCEDURE: Right thoracoscopy converted to thoracotomy with total pulmonary decortication. SURGEON: Kasi Uriostegui M.D. ANESTHESIA: General endotracheal. ESTIMATED BLOOD LOSS: 300 mL. DRAINS: 32-Barb[place] chest tubes x2. DESCRIPTION OF PROCEDURE: After consent was obtained, the patient was brought to the operating room and placed supine position on the operating room table. Appropriate anesthetic monitor was placed an d general endotracheal anesthesia induced. The patient was placed in the left lateral decubitus posi tion. Joints were appropriately padded. SCDs were used. Right chest wall was prepped and draped in usual sterile fashion. Two port incisions were made and thoracoscope inserted. The thoracoscope wa s used to takedown the significant amount of adhesion between the chest wall and the lung. I could n ever get the lung to decompress. The patient was also large enough that the distance between the ski n and pleura made angulation of the camera and instrumentation difficult. I elected to convert to op en, chest was opened in a posterolateral fashion. Serratus was spared. Approximately the 5th inters pace was entered. I was able to get my hand into the chest and take down the remainder of the adhesi on. The cultures were taken of the exudate. The exudate was peeled both from the parietal and visce ral pleural surface. After the lung had been completely decorticated, it was inflated and filled the chest cavity nicely. Chest was copiously irrigated with 4 liters of water. A 32-Barbadian chest tubes x2 were placed in the pleural cavity. Ribs were reapproximated with #1 Vicryl. Wounds were copious ly irrigated, closed in layers and sterile dressings applied. The patient tolerated procedure well, was awakened, extubated, and transferred to the recovery room in stable condition.
[2017-12-30] MEDS ORDERED: HYDROmorphone 2 MG/ML VIAL SLOW IVP PRN (12:10)
[2017-12-30] MEDS ORDERED: Promethazine HCl 25 MG/ML VIAL SLOW IVP PRN (12:10)
[2017-12-30] MEDS ORDERED: Fentanyl 100 MCG/2 ML VIAL ONE (12:30)
--- NOTE | 2017-12-30 12:42 | RAD ---
CHEST 1 VIEW: Date: 12/30/17 HISTORY: Post right thoracostomy. COMPARISON: CT prior day. FINDINGS: There are two separate thoracostomy tubes in place. The basilar thoracostomy tube tip is at the mid r ight lung base and the side port may be outside the thoracic cavity. The thoracostomy tube extending to the right lung apex is in good position. Central venous catheter is in place. There is opacity in the left lung base. IMPRESSION: 1. Size decreased right pleural fluid collection. 2. The right basilar thoracostomy tube side port may be outside the thoracic cavity. POS: [facility]
[2017-12-30] MEDS ORDERED: PROPOFOL 200 MG/20 ML VIAL ONE (14:32)
[2017-12-30] MEDS ORDERED: Ketorolac Tromethamine 30 MG/ML VIAL ONE (14:32)
[2017-12-30] MEDS ORDERED: Lidocaine 1% PF 5 ML VIAL ONE (14:32)
[2017-12-30] MEDS ORDERED: Metoprolol Tartrate 5 MG/5 ML VIAL ONE (14:32)
[2017-12-30] MEDS ORDERED: Esmolol 100 MG/10 ML VIAL ONE (14:32)
[2017-12-30] MEDS ORDERED: Ondansetron HCl/PF 4 MG/2 ML Vial ONE (14:32)
[2017-12-30] MEDS ORDERED: Glycopyrrolate 0.2 MG/ML 5 ML SYRINGE ONE (14:32)
[2017-12-30] MEDS ORDERED: Dexamethasone 20 MG/5 ML VIAL ONE (14:32)
[2017-12-30] MEDS: Ketorolac Tromethamine 30 MG/ML VIAL IVP PRN (15:12)
[2017-12-30] MEDS: HumaLOG 300 UNITS/3 ML VIAL SC PRN (18:08)
[2017-12-30] MEDS ORDERED: Ibuprofen 600 MG TAB PO PRN (21:02)
[2017-12-30] MEDS ORDERED: traMADol HCl 50 MG TAB PO PRN (21:02)
[2017-12-30] MEDS ORDERED: Acetaminophen 500 MG TAB PO PRN (21:02)
[2017-12-31] MEDS: HumaLOG 300 UNITS/3 ML VIAL SC PRN ×3 (00:55→17:26)
--- NOTE | 2017-12-31 00:58 | PRG ---
DATE OF SERVICE: 12/30/2017 SUBJECTIVE: Vu Navarro is doing well today. He has had a decortication, right chest with Dr. Radha Uriostegui. His chest tube is functioning. Check postoperative chest x-ray looks better than preoper atively. Dr. Uriostegui will be following him. The patient is still having some discomfort in his upper abdomen, although feels better. OBJECTIVE: VITAL SIGNS: Temperature 97.6 degrees, heart rate 80, respirations 20, blood pressure 125/72. The b flower fluid sent today revealed no organisms on Gram stain. LUNGS: Clear to auscultation. CARDIOVASCULAR: Regular rate and rhythm without murmur or gallop. ABDOMEN: Soft, less tender. LABORATORY DATA: No laboratories checked today. ASSESSMENT AND PLAN: Doing better. The patient is on a regular diet, we will change it to a diabeti c diet. Continue activity and convalescence. Follow subhepatic hematoma, fluid collection may need to repeat, imaging in the future, pending clinical course, check his CBC in the next 2-3 days.
[2017-12-31] MEDS: HYDROmorphone 10 mg/100 ml CADD IVPB PRN ×2 (04:04→18:43)
[2017-12-31] MEDS: Meropenem 2 GM, Admixture Fee 1 EACH in Sodium Chloride 0.9% 100 ML IVPB SCH ×3 (06:31→22:00)
[2017-12-31] MEDS: Lactated Ringer's 1,000 ML IV SCH ×2 (06:47→14:23)
--- NOTE | 2017-12-31 09:36 | RAD ---
FRONTAL VIEW CHEST: COMPARISON: Previous day. INDICATION: Status post right thoracostomy. FINDINGS: There is progressive opacity at the upper to mid right lung. Prior right basilar opacity has decreas ed. Mild interstitial prominence remains at the left lower lung zone. Cardiomediastinal silhouette remains prominent. Right side thoracostomy tube and central vein catheter are again seen. IMPRESSION: Progression of opacification of the upper to mid right lung with improved pleural-based density at th e right lung base. Recommend continued imaging followup. POS: [facility]
[2017-12-31] MEDS: Hydrochlorothiazide 25 MG TAB PO SCH (09:48)
[2017-12-31] MEDS: metFORMIN 500 MG TAB PO SCH ×2 (09:48→17:28)
[2017-12-31] MEDS: Pantoprazole 40 MG VIAL IVP SCH (09:48)
[2017-12-31] MEDS: Polyethylene Glycol 3350 17 GM Packet PO SCH (09:49)
--- NOTE | 2017-12-31 12:05 | EKG ---
Test Reason : Blood Pressure : / mmHG Vent. Rate : 104 BPM Atrial Rate : 104 BPM P-R Int : 154 ms QRS Dur : 092 ms QT Int : 350 ms P-R-T Axes : 048 041 041 degrees QTc Int : 460 ms Sinus tachycardia Otherwise normal ECG Confirmed by SAUL DUNN, ROSSY Echeverria ([id number]), non linear editor PABLO GILBERT ([id number]) on 12/31/2017 12:04:39 PM Referred By: Confirmed By:ROSSY HUGHES MD
--- NOTE | 2017-12-31 14:05 | PRG ---
DATE OF SERVICE: 12/31/2017 SUBJECTIVE: Mr. You Navarro is doing better today. Pain control is good with a [employer]. He is status post thoracotomy decortication yesterday. He is status post laparoscopic cholecystectomy and has suf fered a subhepatic hematoma with air collection. This is not amenable to percutaneous drainage at th is time. We would repeat his CAT scan sometime next week. Overall, he is doing better. Labs were n ot checked today. OBJECTIVE: VITAL SIGNS: Temperature is 98.6 degrees, 86, respiratory rate 18. LUNGS: Clear on the left. On the right, he has coarse breath sounds and pleural rubs. ABDOMEN: Soft. Mild tenderness in the right upper quadrant, improved. LABORATORY DATA: No laboratories today. ASSESSMENT AND PLAN: 1. Empyema. Cultures pending. 2. Subhepatic fluid collection, probably hematoma with air pockets. Continue intravenous antibiotic s for both empyema and intra-abdominal process. 2. Increase mobility. I have discussed with his nurse and education with patient about how to manag e his chest tube, to put waterseal, to enable ambulation 5-10 times a day.
[2017-12-31] MEDS: Atorvastatin Calcium 10 MG TAB PO SCH (22:00)
[2018-01-01] MEDS: Lactated Ringer's 1,000 ML IV SCH ×3 (03:24→10:46)
[2018-01-01] MEDS: HYDROmorphone 10 mg/100 ml CADD IVPB PRN ×2 (05:27→17:09)
[2018-01-01] MEDS: Meropenem 2 GM, Admixture Fee 1 EACH in Sodium Chloride 0.9% 100 ML IVPB SCH ×3 (05:27→21:25)
[2018-01-01] MEDS: HumaLOG 300 UNITS/3 ML VIAL SC PRN ×3 (05:36→18:07)
[2018-01-01] MEDS: Hydrochlorothiazide 25 MG TAB PO SCH (08:17)
[2018-01-01] MEDS: metFORMIN 500 MG TAB PO SCH ×2 (08:18→17:09)
[2018-01-01] MEDS: Polyethylene Glycol 3350 17 GM Packet PO SCH (08:18)
[2018-01-01] MEDS: Pantoprazole 40 MG VIAL IVP SCH (08:18)
[2018-01-01] MEDS ORDERED: traMADol HCl 50 MG TAB PO PRN (15:18)
[2018-01-01] MEDS ORDERED: Lactated Ringer's 1,000 ML IV SCH (15:19)
--- NOTE | 2018-01-01 15:58 | PRG ---
DATE OF SERVICE: 01/01/2018 SUBJECTIVE: Ramon is doing well today. He has good pain control after right thoracotomy for decort ication. OBJECTIVE: VITAL SIGNS: 98.6 degrees, 99, 110/74. Chest tube drainage 495 in the last 24 hours. He has been p assing flatus, but has not had a bowel movement. LUNGS: Clear to auscultation. Breath sounds less coarse on the right today. CARDIAC: Regular rate and rhythm. ABDOMEN: Soft, distended, protuberant. EXTREMITIES: Unremarkable. LABORATORY DATA: None today. Last CAT scan performed on 12/29/2017. ASSESSMENT AND PLAN: The patient is doing well. Chest tube management for pericardial cardiac surge ry. We will plan to re-start MiraLax daily and fiber daily. Recheck his labs tomorrow. Consider re peating his CAT scan prior to discharge. CAT scan of the abdomen to visualize somatic process to see if anything has changed.
[2018-01-01] MEDS: Ketorolac Tromethamine 30 MG/ML VIAL IVP PRN (21:25)
[2018-01-01] MEDS: Atorvastatin Calcium 10 MG TAB PO SCH (21:25)
[2018-01-02 05:03] LABS: ALT (SGPT) 22 U/L (8-55); AST (SGOT) 16 U/L (5-34); Albumin 2.5 g/dL (3.5-5.0); Alkaline Phosphatase 105 U/L (40-150); Anion Gap 11 mmol/L (10-20); BUN (Urea Nitrogen) 6 mg/dL (8.9-20.6); Bilirubin, Total 0.6 mg/dL (0.2-1.2); Calc. Creatinine Clearance 276 mL/min (70-130); Calcium 8.3 mg/dL (7.8-10.44); Carbon Dioxide 35 mmol/L (22-29); Chloride 96 mmol/L (98-107); Estimated GFR-MDRD Greater than 90; Globulin 2.8 g/dL (2.4-3.5); Glucose 205 mg/dL (70-105); Potassium 3.3 mmol/L (3.5-5.1); Protein, Total 5.3 g/dL (6.0-8.3); Sodium 139 mmol/L (136-145)
[2018-01-02] MEDS: Meropenem 2 GM, Admixture Fee 1 EACH in Sodium Chloride 0.9% 100 ML IVPB SCH ×3 (05:30→21:10)
[2018-01-02] MEDS: Ketorolac Tromethamine 30 MG/ML VIAL IVP PRN (05:31)
[2018-01-02 05:49] LABS: Band 10 % (5-11); Eosinophils 1 % (0-10); Hemoglobin 8.1 g/dL (14.0-18.0); Lymphocytes 24 % (21-51); MDiff Complete? YES; Mean Corpuscular HGB CONC 34.3 g/dL (32.0-36.0); Mean Corpuscular Hemoglobin 29.4 pg (27.0-31.0); Mean Corpuscular Volume 85.8 fL (78.0-98.0); Metamyelocyte 1 % (0-0); Monocytes 5 % (0-10); Neutrophil 58 % (42-75); Nucleated RBC 1 % (0); Platelet Count 405 thou/uL (130-400); RBC Distribution Width 13.6 % (11.5-14.5); Red Blood Cell (RBC) Count 2.77 mill/uL (4.70-6.10); White Blood Cell (WBC) Count 11.7 thou/uL (4.8-10.8)
[2018-01-02] MEDS: HumaLOG 300 UNITS/3 ML VIAL SC PRN ×4 (07:44→21:52)
--- NOTE | 2018-01-02 08:53 | RAD ---
CHEST 1 VIEW PORTABLE: Date: 01/02/18 HISTORY: 52-year-old male with history of status post right thoracoscopy. COMPARISON: 12/31/17. FINDINGS: Right subclavian catheter in place. Right chest tube with some patchy pleural and parenchymal opacity changes in the right chest. No significant pneumothorax. Stable from prior study. Heart size is norm al. The left lung is clear. IMPRESSION: Stable patchy pleural and parenchymal opacity changes in the right chest with right chest tube and ri ght subclavian catheters in place. POS: [facility]
[2018-01-02] MEDS: Hydrochlorothiazide 25 MG TAB PO SCH (09:07)
[2018-01-02] MEDS: metFORMIN 500 MG TAB PO SCH ×2 (09:07→17:01)
[2018-01-02] MEDS: Pantoprazole 40 MG VIAL IVP SCH (09:07)
[2018-01-02] MEDS: Polyethylene Glycol 3350 17 GM Packet PO SCH (09:08)
[2018-01-02] MEDS: HYDROmorphone 10 mg/100 ml CADD IVPB PRN ×2 (12:36→22:26)
--- NOTE | 2018-01-02 12:53 | PRG ---
DATE OF SERVICE: 01/02/2018 SUBJECTIVE: Mr. Navarro is doing well today, he feels better. He has not had a bowel movement in 48 hours. He feels somewhat bloated. He is passing flatus. He is tolerating his diet without nausea, vomiting. OBJECTIVE: VITAL SIGNS: Temperature 98.6 degrees, heart rate 105, respiratory rate 14, blood pressure is 123/76 . LUNGS: Clear to auscultation with coarse breath sounds and rub right. CARDIAC: Regular rate and rhythm. ABDOMEN: Soft with surgical wounds well healed, nontender, slightly bloated and distended, obese. LABORATORY DATA: White count 11.7, hemoglobin 8.1. Basic metabolic profile is unremarkable. X-RAY FINDINGS: Chest x-ray is stable, status post right thoracotomy and decortication. ASSESSMENT AND PLAN: 1. Constipation. We will give him magnesium citrate. The right subhepatic collection, more like he matoma with air pockets on intravenous antibiotics. We would plan discharge home on oral antibiotics . We will check a CAT scan abdomen today with p.o. and IV contrast to check the status of the right subhepatic process to see if the drainage is indicated or necessary. 2. Status post decortication empyema, right, chest tube management per Cardiovascular Surgery. Cult ures to date. One of two blood cultures showed coagulase negative staph, probably a contaminant. Ch est decortication empyema, cultures no growth to date. Three days into the cultures.
[2018-01-02] MEDS ORDERED: ISOVUE-370 76%-LOCM 1 ML ONE (13:04)
[2018-01-02] MEDS: Ibuprofen 800 MG TAB PO SCH (14:20)
[2018-01-02] MEDS: Acetaminophen 325 MG TAB PO SCH ×2 (14:20→21:09)
--- NOTE | 2018-01-02 15:21 | CT ---
CT ABDOMEN WITH IV AND ORAL CONTRAST: HISTORY: Abdominal abscess. Followup. COMPARISON: 12/29/2017 FINDINGS: At the partially visualized inferior hemithorax, two right thoracostomy tubes are now in place, with near complete evacuation of the right pleural fluid and good re-expansion of the right lower lobe. A t the right posterior medial costophrenic angle, an air-fluid collection remains. Gas is present wit hin the right chest wall, with the proximal sidehole of the more posterior catheter, just external to the thoracic cavity, correlating with findings on recent chest radiographs. At the gallbladder fossa, a collection of fluid and pocket of gas is again demonstrated, along with h emostasis clips. The collection remains 8.3 cm in oblique length on the axial images. It has not ch anged significantly in appearance or size. No well defined margins are apparent. IMPRESSION: 1. No significant change in the appearance of the nonencapsulated fluid and gas collection in the ga llbladder fossa. The size and appearance are unchanged. No new abnormalities are evident. 2. Near complete evacuation, right pleural fluid and gas. Small air-fluid loculation remains at the right posterior medial costophrenic angle. The more inferior right thoracostomy tube, proximal side -hole, is just outside the thoracic cavity, with a small amount of chest wall gas. POS: [facility]
[2018-01-02] MEDS: Atorvastatin Calcium 10 MG TAB PO SCH (21:10)
[2018-01-03] MEDS: Ibuprofen 800 MG TAB PO SCH ×2 (01:55→14:11)
[2018-01-03] MEDS: Acetaminophen 325 MG TAB PO SCH ×2 (01:55→09:20)
[2018-01-03] MEDS: Meropenem 2 GM, Admixture Fee 1 EACH in Sodium Chloride 0.9% 100 ML IVPB SCH ×2 (05:34→14:11)
[2018-01-03] MEDS: Pantoprazole 40 MG VIAL IVP SCH (09:20)
[2018-01-03] MEDS: metFORMIN 500 MG TAB PO SCH ×2 (09:20→17:40)
[2018-01-03] MEDS: Hydrochlorothiazide 25 MG TAB PO SCH (09:20)
[2018-01-03] MEDS: Polyethylene Glycol 3350 17 GM Packet PO SCH (09:22)
[2018-01-03] MEDS ORDERED: HYDROcodone/Acetaminophen 10/325 mg Tablet PO PRN (11:14)
[2018-01-03] MEDS: HYDROcodone/Acetaminophen 10/325 mg Tablet PO PRN ×2 (13:06→23:39)
[2018-01-03] MEDS: HumaLOG 300 UNITS/3 ML VIAL SC PRN ×3 (13:46→21:51)
[2018-01-03] MEDS ORDERED: Doxycycline 100 MG CAP PO SCH (21:00)
--- NOTE | 2018-01-03 21:47 | PRG ---
DATE OF SERVICE: 01/03/2018 SUBJECTIVE: Mr. Navarro is doing well today. Dr. Uriostegui is removed his chest tubes. OBJECTIVE: VITAL SIGNS: 98.6 degrees, 92, 118/70. LABORATORY DATA: White count 11 yesterday, hemoglobin 8.1 yesterday. ASSESSMENT AND PLAN LUNGS: Clear to auscultation with less rhonchi and rub in right chest. CARDIAC: Regular rate and rhythm. ABDOMEN: Soft, nontender. He has had a bowel movement. Surgical wounds look good. ASSESSMENT: The patient did well postoperatively. Decortication. We will plan discharge home tomor row on doxycycline b.i.d. for 10 days. PLAN: Discharge home in the morning and follow up in my office in 2-3 weeks. There right subhepatic collection is probably an old hematoma and probably the patient's diagnosis on admission was empyema causing his problems leukocytosis and upper abdominal pain, right.
[2018-01-03] MEDS: Atorvastatin Calcium 10 MG TAB PO SCH (21:48)
[2018-01-04] MEDS: Ibuprofen 800 MG TAB PO SCH (00:56)
[2018-01-04 03:30] VITALS: TEMP 98.6
[2018-01-04] MEDS: HumaLOG 300 UNITS/3 ML VIAL SC PRN (06:47)
--- NOTE | 2018-01-04 07:29 | PRG ---
DATE OF SERVICE: 01/04/2018 HISTORY OF PRESENT ILLNESS: Mr. Navarro is doing well today. His pain is under good control. PHYSICAL EXAMINATION: VITAL SIGNS: Temperature 98.6 degrees, 81, 107/69. LUNGS: Clear to auscultation. CARDIAC: Regular rate and rhythm without murmur or gallop. ABDOMEN: Soft, nontender. Surgical wounds well healed. ASSESSMENT AND PLAN: 1. Doing well after decortication right lung. Followup with Dr. Uriostegui 2 weeks. 2. Status post laparoscopic cholecystectomy with subhepatic hematoma with some air pockets. His whi te count is normal. I think his problem is mainly his empyema on this admission. He will take doxycycline for 2 weeks and has [place] as needed for breakthrough pain. If Ultram, Tylen ol, Motrin are insignificant or not adequate.
--- NOTE | 2018-01-04 07:42 | DIS ---
DISCHARGE DIAGNOSES: 1. Empyema, right chest, status post decortication by Dr. Kasi Uriostegui. 2. Laparoscopic cholecystectomy past admission. Negative HIDA scan this admission, CAT scan on admi ssion and followup revealed stable subhepatic hematoma with some air pockets. He is sent home with doxycycline 100 mg p.o. b.i.d. for 10 days, [place] [address] Uriostegui, Ul tram #40 with 2 refills, take Motrin and Tylenol as able [id number] for pain. HISTORY: A 52-year-old male patient presents with right upper quadrant pain. He underwent laparosco pic cholecystectomy, cholangiogram 12/22/2017 for acute cholecystitis. He had an inflamed gallbladde r. He was seen in the emergency room for pain and CAT scan revealed subhepatic fluid collection. HI DA scan was obtained. This was normal. The patient developed some dyspnea, had a chest x-ray reveal ing changes consistent with empyema. He had a CAT scan of his chest and Dr. Kasi Uriostegui was consul jagjit and thorascopic approach initiated, converted to an open thoracotomy with decortication and chest tube was placed, eventually removed. He is being discharged home at this time after follow up CAT s can of abdomen revealed stable subhepatic fluid collection consistent with a hematoma. His abdomen i s benign. His white count fell from 18 to 11 after decortication. It seems his primary problem was his empyema. The patient is discharged home at this time with follow up in my office in 3-[address] Uriostegui's office in 2 weeks.
[2018-01-04 08:09] VITALS: BP 134/80
[2018-01-04] MEDS: Polyethylene Glycol 3350 17 GM Packet PO SCH (08:09)
[2018-01-04] MEDS: Hydrochlorothiazide 25 MG TAB PO SCH (08:10)
[2018-01-04] MEDS: Pantoprazole 40 MG VIAL IVP SCH (08:10)
[2018-01-04] MEDS: HYDROcodone/Acetaminophen 10/325 mg Tablet PO PRN (08:10)
[2018-01-04] MEDS: metFORMIN 500 MG TAB PO SCH (08:10)
== END 2018-01-04 10:50 | disposition home or self-care (01) | DRG 163 ==
LOC: ERS 00:10 → SURG A 05:45
PROVIDERS: ADMIT Surgery; ATTEND Surgery
PROC: 0BJK4ZZ Inspection of Right Lung, Percutaneous Endoscopic Approach (ICD-10-PCS; principal; 2017-12-30)
PROC: 0BNK0ZZ Release Right Lung, Open Approach (ICD-10-PCS; 2017-12-30)
DX: J86.9 Pyothorax without fistula (principal); J18.8 Other pneumonia, unspecified organism; K91.870 Postprocedural hematoma of a digestive system organ or structure following a digestive system procedure; G89.18 Other acute postprocedural pain; Z90.49 Acquired absence of other specified parts of digestive tract; Z53.32 Thoracoscopic surgical procedure converted to open procedure; I10 Essential (primary) hypertension; E11.9 Type 2 diabetes mellitus without complications; E78.00 Pure hypercholesterolemia, unspecified; E66.9 Obesity, unspecified; Z68.35 Body mass index [BMI] 35.0-35.9, adult; Y83.6 Removal of other organ (partial) (total) as the cause of abnormal reaction of the patient, or of later complication, without mention of misadventure at the time of the procedure
CPT/HCPCS: 36415; 36416; 71045; 71046; 71260; 74019; 74160; 74177; 78226; 80048; 80053; 80202; 81003; 81015; 82550; 82553; 83605; 83690; 84484; 85025; 87040; 87070; 87149; 87205; 93005; 94760; 96361; 96365; 96375; 96376; A4216; A9537; C9113; J0131; J0670; J0694; J1100; J1170; J1650; J1885; J2001; J2185; J2270; J2405; J2704; J3010; J3370; J7050

== ENCOUNTER 2020-01-11 11:40 | Inpatient (IN) | payer SELFPAY ==
[2020-01-11] MEDS ORDERED: Clindamycin/D5W 900 mg/50 ml Premix Bag ONE (12:43)
[2020-01-11] MEDS ORDERED: Vancomycin 1 GM/200 ML BAG ONE (12:44)
[2020-01-11 13:15] LABS: #Basophils 0.1 thou/uL (0.0-0.2); #Eosinphils 0.2 thou/uL (0.0-0.7); #Lymphocytes 1.3 thou/uL (1.20-3.40); #Monocytes 0.7 thou/uL (0.11-0.59); #Neutrophils 6.5 thou/uL (1.40-6.50); %Basophils 0.7 % (0.0-1.0); %Eosinophils 2.2 % (0.0-10.0); %Lymphocytes 14.9 % (21.0-51.0); %Monocytes 8.4 % (0.0-10.0); %Neutrophils 73.9 % (42.0-75.0); Hemoglobin 14.9 g/dL (14.0-18.0); Mean Corpuscular HGB CONC 33.3 g/dL (32.0-36.0); Mean Platelet Volume 8.2 fL (7.4-10.4); Platelet Count 304 thou/uL (130-400); RBC Distribution Width 12.4 % (11.5-14.5); Red Blood Cell (RBC) Count 5.32 mill/uL (4.70-6.10); White Blood Cell (WBC) Count 8.9 thou/uL (4.8-10.8)
[2020-01-11 13:44] LABS: ALT (SGPT) 20 U/L (8-55); AST (SGOT) 16 U/L (5-34); Alkaline Phosphatase 94 U/L (40-110); Anion Gap 14 mmol/L (10-20); BUN (Urea Nitrogen) 11 mg/dL (8.4-25.7); Calc. Creatinine Clearance 0 mL/min (70-130); Calcium 9.1 mg/dL (7.8-10.44); Carbon Dioxide 27 mmol/L (22-29); Chloride 98 mmol/L (98-107); Estimated GFR-MDRD 86; Glucose 225 mg/dL (70-105); Potassium 3.8 mmol/L (3.5-5.1); Sodium 135 mmol/L (136-145)
--- NOTE | 2020-01-11 13:50 | RAD ---
LEFT FOOT 3 VIEWS: Date: 01/11/2020 HISTORY: Pain. Stepped on a nail 1 week ago. FINDINGS: There is some soft tissue swelling dorsally at the forefoot, as well as soft tissue swelling, particu larly of the second toe. Arthrosis changes with some circumscribed subchondral cystic changes of the first metatarsophalangeal joint and interphalangeal joint, which certainly could be seen with gout, w ith some coexistent degenerative osteoarthrosis. No evidence for metal foreign body. No fracture or d islocation. IMPRESSION: 1. No metal foreign body. 2. Soft tissue swelling of the dorsal aspect of the forefoot including the second toe. 3. Subchondral cystic changes with some osteoarthrosis changes involving the first metatarsophalange al joint and interphalangeal joint concerning for the possibility of gout. POS: [facility]
[2020-01-11 16:04] VITALS: BMI 29.2
[2020-01-11] MEDS ORDERED: HYDROcodone/Acetaminophen 7.5/325 mg Tablet PO PRN ×2 (16:44)
[2020-01-11] MEDS ORDERED: Senokot S 8.6-50 MG TAB PO PRN (16:44)
[2020-01-11] MEDS ORDERED: Acetaminophen 325 MG TAB PO PRN (16:44)
[2020-01-11] MEDS ORDERED: Sodium Chloride 0.9% 1,000 ML IV SCH (16:45)
[2020-01-11] MEDS ORDERED: Dextrose 5% in Water 1,000 ML IV PRN (16:56)
[2020-01-11] MEDS ORDERED: Dextrose 50% Abboject 50 ML SYRINGE SLOW IVP PRN (16:56)
[2020-01-11] MEDS ORDERED: HumaLOG 300 UNITS/3 ML VIAL SC PRN ×2 (16:56)
[2020-01-11] MEDS: Clindamycin/D5W 600 MG in Premix Bag 1 BAG IVPB SCH ×2 (17:09→23:05)
--- NOTE | 2020-01-11 18:55 | HP ---
PRIMARY CARE PHYSICIAN: Julian at [facility]. CHIEF COMPLAINT: Left foot pain, swelling, and redness. HISTORY OF PRESENT ILLNESS: Mr. Navarro is a very pleasant 54-year-old male, who came to the emergency room today from [facility] after stepping on a nail a week ago last Tuesday, went to see his PCP today and they sent him here to the emergency room for evaluation. He has been soaking it in Epsom Salts, reports that it did help for the first several days, and then the pain, swelling and erythema has progressed over the last week. He reports that he has not been taking any antibiotics and has not done anything for the injury other than Epsom Salts prior to showing up to the emergency room. He was evaluated in the emergency room and admitted for cellulitic changes in the left foot. He had a foot x-ray, which showed soft tissue swelling of the dorsal aspect of the forefoot including the second toe and then subchondral cystic changes with some osteoarthritic changes involving the first metatarsophalangeal joint and interphalangeal joint concerning for possibility of gout. Blood work was largely unremarkable. He did have a sodium of 135, glucose 225, lactic acid 2.8, CRP 6.63 and uric acid 4.9, but no elevated white count. In the emergency room, he was given vancomycin and clindamycin and 1 L of fluids and then admitted to medical for further evaluation. REVIEW OF SYSTEMS: The patient denies fever, chills, abdominal pain, nausea, vomiting or diarrhea. Does report increasing swelling, pain and redness to the left forefoot mostly dorsal, and pain with ambulation. All systems are reviewed and are negative unless mentioned in the HPI. PAST MEDICAL HISTORY: Pertinent for diabetes type 2, high cholesterol, hypertension, but denies taking any medication for these currently. PAST SURGICAL HISTORY: Cholecystectomy; lung surgery, he was not sure what that was or what it entailed. PSYCHIATRIC HISTORY: He was an inpatient at the [facility] 3 to 4 months ago for depression. SOCIAL HISTORY: He denies any alcohol or drug use. He has no smoking history. ALLERGIES: PENICILLIN. HE REPORTS THAT HE PASSES OUT. PHYSICAL EXAMINATION: VITAL SIGNS: Temp is 98, pulse is 77, respiratory rate is 18, pO2 sats are 100% on room air, and blood pressure is 112/75. GENERAL: The patient is nontoxic appearing. He was lying on the bed in the medical floor in no acute distress. HEAD AND EYES: Head is atraumatic and normocephalic. Pupils are equally round and reactive to light. Extraocular muscles are intact. ENT: Mouth, mucous membranes are moist. NECK: Normal range of motion. Trachea is midline. LUNGS: Clear to auscultation. Breath sounds are clear. Chest expansion is equal. CARDIOVASCULAR: Regular S1 and S2. No murmur. ABDOMEN: Soft and nontender. MUSCULOSKELETAL: Upper extremities; normal range of motion, normal strength, radial pulses are normal. Lower extremities; normal range of motion, motor strength is normal. There is about a 3- to 4-cm area of warmth erythema to the dorsal aspect of the left foot, that extends to the second toe. There is a puncture nikkie on the plantar surface underneath the great toe. Pedal pulses are equal. NEUROLOGIC: The patient is able to move all extremities. He is alert and oriented to person, place, and time. PSYCHIATRIC: He has a normal affect. SKIN: Warm, dry, normal in color other than the left foot as described above. ASSESSMENT/PLAN: 1. Left foot cellulitis. The patient was given clindamycin and vanc in the ER. We will continue these and add Cipro for Pseudomonas coverage, normal saline at 75 mL per hour x1 bag tonight. Lactic acid is scheduled to be rechecked. We have added a uric acid, which normal range considering the x-ray changes. We have asked the Wound Care to consult. 2. History of hypertension. We will put some p.r.n. medications. He currently does not take anything and currently he is normotensive. 3. History of diabetes. We have added sliding scale insulin coverage Accu-Cheks a.c. and bedtime for now. 4. He reports that he had a history of hyperlipidemia, but reports that he does not take any medications for that and does not think he needs to. We will refer back to his PCP for a check when necessary. 5. Deep venous thrombosis and gastrointestinal prophylaxis started. 6. Case discussed with Dr. Jett, who agrees with plan. 7. Hospital course dependent on clinical findings. Job ID: [id number]
[2020-01-11] MEDS: Famotidine 20 MG TAB PO SCH (20:00)
[2020-01-12] MEDS: Clindamycin/D5W 600 MG in Premix Bag 1 BAG IVPB SCH ×4 (05:00→23:03)
[2020-01-12 06:35] LABS: #Eosinphils 0.4 thou/uL (0.0-0.7); #Lymphocytes 2.3 thou/uL (1.20-3.40); #Monocytes 0.9 thou/uL (0.11-0.59); #Neutrophils 4.1 thou/uL (1.40-6.50); %Basophils 0.6 % (0.0-1.0); %Eosinophils 4.6 % (0.0-10.0); %Lymphocytes 29.4 % (21.0-51.0); %Monocytes 11.9 % (0.0-10.0); %Neutrophils 53.5 % (42.0-75.0); Hemoglobin 13.8 g/dL (14.0-18.0); Mean Corpuscular HGB CONC 33.2 g/dL (32.0-36.0); Mean Corpuscular Hemoglobin 27.5 pg (27.0-31.0); Mean Corpuscular Volume 83.1 fL (78.0-98.0); Platelet Count 307 thou/uL (130-400); RBC Distribution Width 12.5 % (11.5-14.5); Red Blood Cell (RBC) Count 5.01 mill/uL (4.70-6.10); White Blood Cell (WBC) Count 7.7 thou/uL (4.8-10.8)
[2020-01-12 06:58] LABS: ALT (SGPT) 16 U/L (8-55); AST (SGOT) 12 U/L (5-34); Albumin 3.5 g/dL (3.5-5.0); Alkaline Phosphatase 83 U/L (40-110); Anion Gap 10 mmol/L (10-20); BUN (Urea Nitrogen) 10 mg/dL (8.4-25.7); Bilirubin, Total 0.5 mg/dL (0.2-1.2); Calc. Creatinine Clearance 178 mL/min (70-130); Calcium 8.8 mg/dL (7.8-10.44); Carbon Dioxide 29 mmol/L (22-29); Chloride 100 mmol/L (98-107); Estimated GFR-MDRD Greater than 90; Globulin 2.7 g/dL (2.4-3.5); Glucose 107 mg/dL (70-105); Potassium 4.1 mmol/L (3.5-5.1); Protein, Total 6.2 g/dL (6.0-8.3); Sodium 135 mmol/L (136-145)
[2020-01-12] MEDS: Famotidine 20 MG TAB PO SCH ×2 (10:13→19:55)
--- NOTE | 2020-01-12 13:49 | MRI ---
EXAM: MRI of the left foot without contrast HISTORY: Patient stepped on a nail and didn't feel it. Diabetes. Evaluate for osteomyelitis COMPARISON: x-ray 01/11/2020 TECHNIQUE: Multiplanar multisequence MR images were obtained of the left foot without contrast. FINDINGS: Diffuse edema of the foot is seen. There are osseous erosions surrounding the great toe metatarsophal angeal joint which may be secondary to gout. Other more subtle erosions are seen in the distal aspect of the second, third, and fifth metatarsals. Edema and subtle low T1 signal is seen within the proximal and middle phalanx of the second toe. No focal fluid collection is seen in the soft tissues. The muscles and tendons appear intact. IMPRESSION: 1. Abnormal marrow signal in the proximal and middle phalanx of the second toe could be secondary to osteomyelitis. 2. Possible gouty changes of the foot.
--- NOTE | 2020-01-12 18:09 | PDOC.HOSPP ---
- Subjective Subjective: Seen and examined. Foot wound was evaluated. The degree of the wound cannot be evaluated based off of the superficial findings with 2 small ulcerations from 1 "nail in shoe". I was concerned for osteomyelitis therefore I ordered an MRI, MRI is concerning for osteomyelitis. Surgery consultation has been requested for further recommendations. Continue broad-spectrum antibiotics. Patient in good spirits, currently eating a whole pizza in bed. - Objective Vital Signs & Weight: Vital Signs (12 hours) Temp Pulse Resp BP Pulse Ox 01/12/20 11:11 97.6 F 71 16 119/73 96 01/12/20 07:50 98.5 F 76 16 112/72 96 Weight Admit Weight 253 lb Weight 253 lb I&O: 01/11/20 01/12/20 01/13/20 06:59 06:59 06:59 Intake Total 1840 Output Total 700 Balance 1140 Result Diagrams: 01/12/20 06:27 01/12/20 06:27 Radiology Reviewed by me: Yes Hospitalist ROS - Review of Systems All other systems reviewed; all pertinent +/- noted in HPI/Subj - Medication Medications: Active Medications Generic Name Dose Route Start Last Admin Trade Name Freq PRN Reason Stop Dose Admin Famotidine 20 mg 01/11/20 21:00 01/12/20 10:13 Pepcid PO Not Given BID SHAUNNA Clindamycin Phosphate/Dextrose 50 mls @ 100 mls/hr 01/11/20 18:00 01/12/20 17 :53 600 mg/ Device IVPB 50 mls Q6HR SHAUNNA Administration Ciprofloxacin/Dextrose 400 mg/ 200 mls @ 200 mls/hr 01/11/20 21:00 01/12/20 09:15 Device IVPB 200 mls Q12HR SHAUNNA Administration - Exam General Appearance: NAD, awake alert Eye: PERRL ENT: normocephalic atraumatic Neck: no lymphadenopathy Heart: RRR, no murmur, no gallops, no rubs Respiratory: CTAB, no wheezes, no rales, no ronchi, normal chest expansion Gastrointestinal: soft, non-tender, non-distended, normal bowel sounds, no guarding, no rigidity Extremities: no clubbing, no edema Skin: no rashes Skin - other findings: See wound care pictures for details. 2 DM ulcers present Neurological: cranial nerve grossly intact, no focal deficits Musculoskeletal: normal strength, no muscle wasting Psychiatric: normal affect, normal behavior, A&O x 3 Hosp A/P (1) DM foot ulcers Code(s): E11.621 - TYPE 2 DIABETES MELLITUS WITH FOOT ULCER; L97.509 - NON- PRESSURE CHRONIC ULCER OTH PRT UNSP FOOT W UNSP SEVERITY Status: Acute (2) DM (diabetes mellitus) Code(s): E11.9 - TYPE 2 DIABETES MELLITUS WITHOUT COMPLICATIONS Status: Acute (3) Dyslipidemia (high LDL; low HDL) Code(s): E78.4 - OTHER HYPERLIPIDEMIA * DO NOT USE * Status: Acute (4) Hypertension Code(s): I10 - ESSENTIAL (PRIMARY) HYPERTENSION Status: Acute (5) Obesity Code(s): E66.9 - OBESITY, UNSPECIFIED Status: Chronic - Plan Plan: medical unit general surgery consultation, recommendations pending MRI and foot concerning for osteomyelitis broad-spectrum IV antibiotics insulin for glucose control diabetic diet continue other home medications as able blood pressure control blood sugar control G.I. prophylaxis DVT prophylaxis
[2020-01-12 19:54] VITALS: TEMP 98.4
[2020-01-13 03:53] LABS: #Basophils 0.1 thou/uL (0.0-0.2); #Eosinphils 0.4 thou/uL (0.0-0.7); #Lymphocytes 2.3 thou/uL (1.20-3.40); #Monocytes 0.8 thou/uL (0.11-0.59); #Neutrophils 3.7 thou/uL (1.40-6.50); %Basophils 0.7 % (0.0-1.0); %Lymphocytes 31.9 % (21.0-51.0); %Monocytes 11.5 % (0.0-10.0); %Neutrophils 50.9 % (42.0-75.0); Hemoglobin 14.3 g/dL (14.0-18.0); Mean Corpuscular HGB CONC 33.7 g/dL (32.0-36.0); Mean Corpuscular Hemoglobin 27.9 pg (27.0-31.0); Mean Corpuscular Volume 82.7 fL (78.0-98.0); Mean Platelet Volume 8.2 fL (7.4-10.4); Platelet Count 335 thou/uL (130-400); RBC Distribution Width 12.3 % (11.5-14.5); Red Blood Cell (RBC) Count 5.14 mill/uL (4.70-6.10); White Blood Cell (WBC) Count 7.2 thou/uL (4.8-10.8)
[2020-01-13 04:03] LABS: Anion Gap 11 mmol/L (10-20); BUN (Urea Nitrogen) 13 mg/dL (8.4-25.7); Calc. Creatinine Clearance 190 mL/min (70-130); Calcium 8.7 mg/dL (7.8-10.44); Carbon Dioxide 27 mmol/L (22-29); Chloride 102 mmol/L (98-107); Estimated GFR-MDRD Greater than 90; Glucose 104 mg/dL (70-105); Sodium 136 mmol/L (136-145)
[2020-01-13] MEDS: Clindamycin/D5W 600 MG in Premix Bag 1 BAG IVPB SCH (05:10)
[2020-01-13] MEDS: Famotidine 20 MG TAB PO SCH (08:45)
[2020-01-13 08:50] VITALS: BP 125/82
--- NOTE | 2020-01-14 02:32 | DIS ---
DATE OF ADMISSION: 01/11/2020 DATE OF DISCHARGE: 01/13/2020 REASON FOR HOSPITALIZATION: Diabetic foot wound. SIGNIFICANT FINDINGS: The patient was found to have MRI of the lower extremity suggestive of osteomyelitis of the second digit. PROCEDURES PERFORMED AND TREATMENTS RENDERED: The patient was admitted to the medical unit for maximum medical therapy. The patient was started on broad-spectrum IV antibiotics with a good improvement of symptoms. The patient initially presenting with cellulitis extending to the dorsum of the foot, after the initiation of antibiotics this cellulitis resolved completely. The patient was found to have two small plantar surface diabetic foot ulcers that he states were from a nail that was in his shoe. After I discovered that osteomyelitis was evident on MRI, I requested a surgical consult. The general surgery team evaluating the patient on 01/13/2020 recommended Orthopedic Surgery consultation and he may require amputation. The patient had remained afebrile throughout his hospitalization. I evaluated the patient on 01/13/2020 and told him of medical versus surgical options. At that time, the patient was cooperative. Unfortunately, my nursing staff informed me that in the afternoon of 01/13/2020, the patient decided he was going to leave against medical advice. Maximum efforts were done by nursing staff and business support coordinator to try and convince the patient to stay and participate with his care. Unfortunately, the patient would not listen to medical advice and decided that he was going to leave against medical advice. In an effort to help this patient's infection, I did offer him antibiotics and sent them to his preferred pharmacy. I informed the patient that it is imperative that he take oral antibiotics and follow up with primary care physician, wound care, and have strict compliance. As this patient left against medical advice prior to being evaluated by surgery, his prognosis for a complete recovery is guarded. CONDITION ON DISCHARGE: Guarded. SPECIFIC INSTRUCTIONS FOR THE PATIENT/FAMILY: 1. The patient recommended to return to acute care hospital immediately if signs and symptoms worsen, return, or any other new symptoms occur. 2. The patient recommended to complete a full course of oral antibiotics. 3. The patient recommended to follow up with primary care physician in the next 5 to 7 days. 4. The patient recommended to follow up with Wound Care three times a week and have appropriate wound care management. 5. The patient recommended to follow all of the previously mentioned steps explicitly or return to acute care hospital immediately for re-evaluation. TIME SPENT: Greater than 40 minutes spent coordinating care and AMA process. Unfortunately, this is an AMA summary for a patient who left against medical advice and would not cooperate with his own care. Job ID: [id number]
== END 2020-01-13 11:04 | disposition left against medical advice (07) | DRG 638 ==
LOC: ERS 11:40 → ONC 15:50
PROVIDERS: ADMIT Internal Medicine; ATTEND Internal Medicine
DX: E11.69 Type 2 diabetes mellitus with other specified complication (principal); M86.8X7 Other osteomyelitis, ankle and foot; L03.116 Cellulitis of left lower limb; E11.621 Type 2 diabetes mellitus with foot ulcer; L97.529 Non-pressure chronic ulcer of other part of left foot with unspecified severity; E78.00 Pure hypercholesterolemia, unspecified; F32.9 Major depressive disorder, single episode, unspecified; I10 Essential (primary) hypertension; E78.5 Hyperlipidemia, unspecified; E66.9 Obesity, unspecified; Z90.49 Acquired absence of other specified parts of digestive tract; I25.2 Old myocardial infarction; Z68.29 Body mass index [BMI] 29.0-29.9, adult; Z88.0 Allergy status to penicillin
CPT/HCPCS: 36415; 36416; 80048; 80053; 83605; 84550; 85025; 85652; 86140; 87040; 96365; 96367; J0744; J3370; J3490; J7030

== ENCOUNTER 2020-01-16 13:33 | Inpatient (IN) | payer OTHER, SELFPAY ==
[2020-01-16 15:11] LABS: #Basophils 0.1 thou/uL (0.0-0.2); #Eosinphils 0.3 thou/uL (0.0-0.7); #Lymphocytes 2.2 thou/uL (1.20-3.40); #Monocytes 0.7 thou/uL (0.11-0.59); #Neutrophils 4.7 thou/uL (1.40-6.50); %Basophils 0.6 % (0.0-1.0); %Eosinophils 4.3 % (0.0-10.0); %Lymphocytes 27.9 % (21.0-51.0); %Monocytes 8.8 % (0.0-10.0); %Neutrophils 58.3 % (42.0-75.0); Hemoglobin 14.1 g/dL (14.0-18.0); Mean Corpuscular HGB CONC 33.9 g/dL (32.0-36.0); Mean Corpuscular Hemoglobin 28.1 pg (27.0-31.0); Mean Platelet Volume 7.9 fL (7.4-10.4); Platelet Count 333 thou/uL (130-400); RBC Distribution Width 12.3 % (11.5-14.5); Red Blood Cell (RBC) Count 5.01 mill/uL (4.70-6.10)
[2020-01-16] MEDS ORDERED: Clindamycin/D5W 900 mg/50 ml Premix Bag ONE (15:24)
[2020-01-16 15:31] LABS: ALT (SGPT) 17 U/L (8-55); AST (SGOT) 13 U/L (5-34); Albumin 3.9 g/dL (3.5-5.0); Alkaline Phosphatase 88 U/L (40-110); Anion Gap 11 mmol/L (10-20); BUN (Urea Nitrogen) 14 mg/dL (8.4-25.7); Bilirubin, Total 0.4 mg/dL (0.2-1.2); Calc. Creatinine Clearance 0 mL/min (70-130); Calcium 8.7 mg/dL (7.8-10.44); Carbon Dioxide 29 mmol/L (22-29); Chloride 100 mmol/L (98-107); Estimated GFR-MDRD Greater than 90; Globulin 2.9 g/dL (2.4-3.5); Glucose 218 mg/dL (70-105); Potassium 4.1 mmol/L (3.5-5.1); Protein, Total 6.8 g/dL (6.0-8.3); Sodium 136 mmol/L (136-145)
[2020-01-16] MEDS ORDERED: Vancomycin HCl 2.5 GM in Sodium Chloride 0.9% 500 ML IVPB SCH (16:00)
[2020-01-16 16:19] LABS: Hemoglobin A1c 6.6 % (4.0-6.0)
--- NOTE | 2020-01-16 16:45 | PDOC.HHP ---
Hospitalist HPI - History of Present Illness osteomyelitis of toe History of Present Illness: This is a 54 year old male with past medical history of diabetes and hypertension who presented to the ER for osteomyelitis. 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 He has numbness in his left foot therefore did not notice any trauma until a few days later when he felt something hit his bone. He looked down and noticed a nail in his foot. His leg started becoming swollen and erythematous. He initially tried to manage it with epsom salts however the pain progressively got worst, so he saw his PCP at [facility] who advised him to come to the ER. He was admitted from 01/10 to 01/12 and was diagnosed with osteomyelitis of his second toe. He was advised that he needed an amputation but the surgeon was not available over the weekend, so he left AMA to take care of a few things and decided to come back today. THe patient states that he has not taken any oral antibiotics and did not receive any on discharge. He reports swelling and numbness of his left foot, denies erythema or purulent discharge. He denies fevers, chills, cough, shortness of breath. The patient reports history of diabetes and blood sugars are 100-150; he does not take metformin because he does not like side effects of it. He also does not take blood pressure medicine and his BP is usually 170's at home. ED Course: When the patient presented to the ER he had Hospitalist ROS - Review of Systems Constitutional: denies: fever, chills Eyes: reports: other (blurry vision). denies: vision change ENT: denies: ear pain, ear discharge Respiratory: denies: cough, shortness of breath Cardiovascular: denies: chest pain, palpitations, orthopnea Gastrointestinal: denies: nausea, vomiting, abdominal pain, diarrhea Genitourinary: denies: dysuria, frequency Musculoskeletal: denies: leg pain Skin: denies: rash, lesions Neurological: reports: numbness (left foot). denies: weakness Hospitalist History - Past Medical History Other Medical History: Diabetes Hypertension - Past Surgical History Other Surgical History: Cholecystectomy Reports couldn't breathe after gallbladder surgery and had saline pumped into lung to irrigate it - Family History Other Family History: Diabetes Hypertension - Social History Smoking Status: Former smoker (Smoked marijuana for 25 years, quit 4 years ago) Alcohol: reports: None Drugs: reports: none, Other (former cocaine user) Occupation: Works as a contractor - Exam General Appearance: NAD, awake alert Eye: PERRL, anicteric sclera ENT: normocephalic atraumatic, no oropharyngeal lesions Neck: no JVD Heart: RRR, no murmur, no gallops, no rubs Respiratory: CTAB, no wheezes, no rales, no ronchi Gastrointestinal: soft, non-tender, non-distended, normal bowel sounds Extremities: no cyanosis, no clubbing, no edema Extremities - other findings: plantar ulcer on left second toe with some pain, tenderness, erythema Skin: normal turgor, no lesions, no rashes Neurological: cranial nerve grossly intact Musculoskeletal - other findings: diminished pulses in DP bilaterally Psychiatric: normal affect, normal behavior, A&O x 3 Hospitalist Results - Labs Result Diagrams: 01/16/20 15:01 01/16/20 15:01 Lab results: WBC 8.0 thou/uL (4.8-10.8) 01/16/20 15:01 Hgb 14.1 g/dL (14.0-18.0) 01/16/20 15:01 Hct 41.6 % (42.0-52.0) L 01/16/20 15:01 MCV 83.0 fL (78.0-98.0) 01/16/20 15:01 Plt Count 333 thou/uL (130-400) 01/16/20 15:01 Neutrophils % 58.3 % (42.0-75.0) 01/16/20 15:01 Sodium 136 mmol/L (136-145) 01/16/20 15:01 Potassium 4.1 mmol/L (3.5-5.1) 01/16/20 15:01 Chloride 100 mmol/L (98-107) 01/16/20 15:01 Carbon Dioxide 29 mmol/L (22-29) 01/16/20 15:01 BUN 14 mg/dL (8.4-25.7) 01/16/20 15:01 Creatinine 0.85 mg/dL (0.7-1.3) 01/16/20 15:01 Glucose 218 mg/dL (70-105) H 07/22/20 15:01 Calcium 8.7 mg/dL (7.8-10.44) 01/16/20 15:01 Total Bilirubin 0.4 mg/dL (0.2-1.2) 01/16/20 15:01 AST 13 U/L (5-34) 01/16/20 15:01 ALT 17 U/L (8-55) 01/16/20 15:01 Alkaline Phosphatase 88 U/L (40-110) 01/16/20 15:01 Serum Total Protein 6.8 g/dL (6.0-8.3) 01/16/20 15:01 Albumin 3.9 g/dL (3.5-5.0) 01/16/20 15:01 Hospitalist H&P A/P - Plan Plan: MRI foot: possibly gouty changes. Abnormal marrow signal in proximal and middle proximal phalanx secondary to osteomyelitis This is a 54 year old male with diabetes, hypertension presenting with osteomyelitis Osteomyelitis of left second toe -WBC is normal. MRI confirmed osteomyelitis of left foot. Continue IV antibiotics - check blood cultures - plan for partial amputation tomorrow Diabetes - insulin sliding scale for now Hypertension - blood pressure controlled currently DVT prophylaxis: SCDS for now Code status: full code
--- NOTE | 2020-01-16 16:47 | CON ---
DATE OF CONSULTATION: HISTORY OF PRESENT ILLNESS: Vu Navarro is a 54-year-old male patient, recently hospitalized but left AMA because he was going to await for surgical opinion over the weekend regarding his left foot. The patient is allergic to penicillin. He stepped on a nail a few weeks ago, developed cellulitis of his left foot, developed a wound in the plantar aspect of his mid to proximal second toe and a smaller wound on his great toe. He was seen in the hospital with cellulitis, treated with intravenous antibiotics, and sent home on oral antibiotics. During the hospitalization, plain x-rays did not reveal any remarkable findings. However, MRI suggested possible osteomyelitis of the first mid and proximal mid phalanx second toe. I evaluated his wound in the emergency room today when he returned. There is no evidence of cellulitis. There is no purulence. He has a puncture wound at the base of his second toe. The proximal that undermines and it is fairly large. Underneath the metatarsophalangeal joint of the great toe, he had a small callus that when removing the callus, there is a small open wound. It does not extend deeply, however. I had a long discussion with him about treatment options. I would recommend treating the great toe metatarsophalangeal plantar ulcer with local wound care. Hopefully, it will resolve. As far as second toe, I gave him options for prolonged intravenous antibiotics or oral antibiotics that may culminate in amputation any way and the patient would rather proceed with amputation, which I think is reasonable. He ate lunch. We will plan this tomorrow. We will obtain COVID testing though he is asymptomatic. The patient works in construction. ALLERGIES: PENICILLIN. MEDICATIONS: 1. . 2. Cleocin. SOCIAL HISTORY: Tobacco, none. Marijuana abuse, frequent use, cessation 3 years ago. Alcohol, none. PAST SURGICAL HISTORY: Laparoscopic cholecystectomy that I performed in 2018, 6 or 8 days later, required thoracotomy for empyema, Dr. Kasi Uriostegui. No other surgeries. REVIEW OF SYSTEMS: Ten-point noncontributory. PHYSICAL EXAMINATION: VITAL SIGNS: Blood pressure 140/84, respiratory rate 18, heart rate 78. HEAD EARS, EYES, NOSE, AND THROAT: Unremarkable. Sclerae nonicteric. SKIN: Nonjaundiced. NEUROLOGIC: Intact. Cranial nerves intact. LUNGS: Clear to auscultation. CARDIAC: Regular rate and rhythm without murmur or gallop. ABDOMEN: Soft and nontender. EXTREMITIES: As noted above, palpable posterior tibial pulses bilaterally. No cellulitis of the left foot. ASSESSMENT AND PLAN: 1. Diabetic ulcer beneath the metatarsophalangeal joint of the great toe. We will debride and wash this out and plan local wound care. 2. Ulceration after nail puncture, second toe, left, plan debridement and amputation of left second toe with more likely primary closure. Could consider secondary healing. 3. History of diabetes. Intentional 72-pound weight loss. Tobacco cessation 3 years ago. Bringing his glucose under good control. He states at home his Accu-Cheks are 120 to 150. He eats so much better and the medications he was taking for his diabetes previously were making him ill. Hemoglobin A1c on 04/23/2016 was 7.8. Glucose today 218. We will plan to check another hemoglobin A1c and leave treating his diabetes recommendations to the medical service where he will be admitted. Job ID: [id number]
[2020-01-16] MEDS ORDERED: Morphine 4 MG/ML VIAL ONE (17:10)
[2020-01-16 18:21] VITALS: BMI 28.9
[2020-01-16] MEDS ORDERED: HumaLOG 300 UNITS/3 ML VIAL SC PRN (18:54)
[2020-01-16] MEDS ORDERED: Dextrose 5% in Water 1,000 ML IV PRN (18:54)
[2020-01-16] MEDS ORDERED: Dextrose 50% Abboject 50 ML SYRINGE SLOW IVP PRN (18:54)
[2020-01-16] MEDS: Cefepime 2 GM in Sodium Chloride 0.9% 100 ML IVPB SCH (20:33)
[2020-01-16] MEDS ORDERED: HYDROcodone/Acetaminophen 5/325 mg Tablet PO PRN (22:55)
[2020-01-16] MEDS ORDERED: Morphine 2 MG/ML VIAL SLOW IVP SCH (23:00)
[2020-01-17] MEDS: Vancomycin HCl 1.25 GM in Sodium Chloride 0.9% 250 ML 250 ML IVPB SCH ×3 (02:33→17:33)
[2020-01-17] MEDS ORDERED: Sodium Chloride 0.9% 1,000 ML IV SCH (08:00)
[2020-01-17] MEDS: Cefepime 2 GM in Sodium Chloride 0.9% 100 ML IVPB SCH ×2 (09:17→20:47)
[2020-01-17] MEDS ORDERED: Lidocaine 1% PF 5 ML VIAL ONE (09:30)
[2020-01-17] MEDS ORDERED: PROPOFOL 200 MG/20 ML VIAL ONE (09:30)
[2020-01-17] MEDS ORDERED: Ondansetron PF 4 MG/2 ML Vial ONE (09:30)
[2020-01-17 09:37] LABS: Hemoglobin 14.1 g/dL (14.0-18.0); Mean Corpuscular HGB CONC 32.4 g/dL (32.0-36.0); Mean Corpuscular Hemoglobin 26.8 pg (27.0-31.0); Mean Corpuscular Volume 82.7 fL (78.0-98.0); Mean Platelet Volume 7.9 fL (7.4-10.4); Platelet Count 307 thou/uL (130-400); RBC Distribution Width 12.3 % (11.5-14.5); Red Blood Cell (RBC) Count 5.26 mill/uL (4.70-6.10); White Blood Cell (WBC) Count 7.4 thou/uL (4.8-10.8)
[2020-01-17 09:44] LABS: PTT 30.9 sec (22.9-36.1); Prothrombin Time 12.9 sec (12.0-14.7)
[2020-01-17] MEDS ORDERED: Morphine 2 MG/ML SYRINGE SLOW IVP PRN (09:49)
[2020-01-17 09:59] LABS: Anion Gap 11 mmol/L (10-20); BUN (Urea Nitrogen) 11 mg/dL (8.4-25.7); Calc. Creatinine Clearance 183 mL/min (70-130); Calcium 8.5 mg/dL (7.8-10.44); Carbon Dioxide 28 mmol/L (22-29); Chloride 101 mmol/L (98-107); Estimated GFR-MDRD Greater than 90; Glucose 112 mg/dL (70-105); Potassium 4.2 mmol/L (3.5-5.1); Sodium 136 mmol/L (136-145)
[2020-01-17] MEDS ORDERED: Morphine 2 MG/ML VIAL SLOW IVP PRN (10:01)
[2020-01-17] MEDS: Ketorolac Tromethamine 30 MG/ML VIAL IVP PRN (10:12)
[2020-01-17] MEDS ORDERED: Fentanyl 100 MCG/2 ML VIAL ONE ×2 (13:24→14:58)
[2020-01-17] MEDS ORDERED: Acetaminophen 500 MG TAB PO PRN (14:05)
[2020-01-17] MEDS ORDERED: traMADol HCl 50 MG TAB PO PRN ×2 (14:05)
[2020-01-17] MEDS ORDERED: Bupivacaine PF 0.5% 30 ML VIAL ONE (14:08)
[2020-01-17] MEDS ORDERED: Lidocaine 1% w/Epinephrine 1:100K 20 ML VIAL ONE (14:08)
[2020-01-17 14:57] LABS: SARS-CoV-2 MS2 Positive; SARS-CoV-2 N Gene Negative; SARS-CoV-2 S Gene Negative; SARS-CoV-2 by NAA Not Detected (NotDetected); SARS-CoV-2 orf1ab Negative
--- NOTE | 2020-01-17 16:03 | OP ---
DATE OF PROCEDURE: 01/17/2020 PREOPERATIVE DIAGNOSES: 1. Diabetic foot ulcers, left second toe and great toe after a nail puncture wound of 2nd toe with cellulitis infection, left foot, resolved with antibiotics. 2. Osteomyelitis, left second toe. 3. Plantar wound, great toe extending down to the phalanx, appreciated preoperatively. PROCEDURE PERFORMED: Amputation of left second and first toe through the proximal phalanx with irrigation and primary closure. ANESTHESIA: General. Note, excellent blood supply. DESCRIPTION OF PROCEDURE: The patient was taken to the operating room where under general anesthesia, left lower extremity was prepared with Betadine and draped in routine fashion. The patient had a puncture wound in his plantar mid second toe. The excision was performed, preserving skin over dorsally and resecting necessary skin to remove the ulcer and underlying proximal phalanx. Phalanx transected with a bone cutter and resected proximally with a rongeur. Wound irrigated. There was no purulence. No evidence of infection in the soft tissues, which was healthy. He had a good blood supply. Thus, good hemostasis obtained with cautery. Wound irrigated. Subcutaneous tissue was approximated with 4-0 Monocryl, skin with 3-0 Prolene interrupted. Attention turned to the left great toe where a plantar puncture wound extended deeper and undermined deeper than appreciated preoperatively. As discussed with the patient preoperatively, amputation of the great toe was performed, excising ulcer plantar and preserving dorsal skin for closure, amputating the toe through the proximal phalanx, resecting with a rongeur. Good hemostasis obtained. Wound copiously irrigated. Subcutaneous tissue was approximated with 3-0 Monocryl, skin with 3-0 Prolene. Sterile dressings applied. The patient tolerated the procedure well. Job ID: [id number]
[2020-01-17] MEDS: HYDROcodone/Acetaminophen 5/325 mg Tablet PO PRN ×2 (16:10→20:48)
--- NOTE | 2020-01-17 17:11 | PDOC.HOSPP ---
- Subjective Encounter Date: 01/17/20 Encounter Time: 10:00 Subjective: The patient states he was experiencing 8/10 pain after they took off his gauze and was asking for morphine. Otherwise he has no discharge, swelling, redness or pain - Objective Vital Signs & Weight: Vital Signs (12 hours) Temp Pulse Resp BP BP Pulse Ox 01/17/20 16:00 99 01/17/20 15:45 97.6 F 61 16 120/79 99 01/17/20 08:00 96 01/17/20 07:55 97.8 F 65 10 L 128/83 96 Weight Admit Weight 250 lb 8 oz Weight 250 lb 8 oz I&O: 01/16/20 01/17/20 01/18/20 06:59 06:59 06:59 Intake Total 1150 Balance 1150 Result Diagrams: 01/17/20 09:22 01/17/20 09:22 Additional Labs: Accuchecks 01/17/20 01/17/20 01/17/20 15:50 11:36 05:53 POC Glucose 84 102 106 01/16/20 20:36 POC Glucose 147 H Hospitalist ROS - Review of Systems Constitutional: denies: fever, chills - Medication Medications: Active Medications Generic Name Dose Route Start Last Admin Trade Name Freq PRN Reason Stop Dose Admin Hydrocodone Bitart/Acetaminophen 2 tab 01/16/20 22:55 01/17/20 16:10 [place] 5/325 PO 2 tab Q4H PRN Administration Severe Pain (7-10) Cefepime HCl 2 gm/ Sodium 100 mls @ 200 mls/hr 01/16/20 21:00 01/17/20 09:17 Chloride IVPB 01/18/20 08:00 100 mls Q12HR SHAUNNA Administration Vancomycin HCl 1.25 gm/ Sodium 250 mls @ 166.667 mls/hr 01/17/20 02:00 09:17 Chloride IVPB 01/18/20 08:00 250 mls 0200,1000,1800 SHAUNNA Administration Ketorolac Tromethamine 15 mg 01/17/20 09:50 01/17/20 10:12 Toradol IVP 01/22/20 09:51 15 mg Q6H PRN Administration Pain Levofloxacin 750 mg 01/17/20 15:00 01/17/20 16:10 Levaquin PO 750 mg 1500 SHAUNNA Administration - Exam General Appearance: NAD, awake alert Eye: PERRL, anicteric sclera ENT: normocephalic atraumatic, no oropharyngeal lesions Neck: no JVD Heart: RRR, no murmur, no gallops, no rubs Respiratory: CTAB, no wheezes, no rales, no ronchi Gastrointestinal: soft, non-tender, non-distended, normal bowel sounds Extremities: no cyanosis, no clubbing, no edema Skin: normal turgor, no lesions, no rashes Hosp A/P - Plan This is a 54 year old male with diabetes, hypertension presenting with osteomyelitis Osteomyelitis of left second toe -WBC is normal. MRI confirmed osteomyelitis of left foot. Continue IV antibiotics - blood cultures negative on 01/10 - plan for partial amputation tomorrow - he is on cefepime, levaquin and flagyl. I will obtain ID consultation regarding antibiotic duration Diabetes - insulin sliding scale for now - Hb A1C is 6.6 Hypertension - blood pressure controlled currently
[2020-01-17 17:55] LABS: Vancomycin, Trough 13.1 ug/mL
[2020-01-18] MEDS: Ketorolac Tromethamine 30 MG/ML VIAL IVP PRN ×2 (00:15→08:44)
[2020-01-18] MEDS: HYDROcodone/Acetaminophen 5/325 mg Tablet PO PRN ×2 (01:35→05:40)
[2020-01-18] MEDS: Vancomycin HCl 1.25 GM in Sodium Chloride 0.9% 250 ML 250 ML IVPB SCH (01:43)
[2020-01-18 05:01] LABS: Hemoglobin 14.5 g/dL (14.0-18.0); Mean Corpuscular HGB CONC 32.2 g/dL (32.0-36.0); Mean Corpuscular Hemoglobin 27.2 pg (27.0-31.0); Mean Corpuscular Volume 84.5 fL (78.0-98.0); Mean Platelet Volume 8.5 fL (7.4-10.4); Platelet Count 239 thou/uL (130-400); RBC Distribution Width 12.4 % (11.5-14.5); Red Blood Cell (RBC) Count 5.33 mill/uL (4.70-6.10); White Blood Cell (WBC) Count 9.6 thou/uL (4.8-10.8)
[2020-01-18 05:29] LABS: Anion Gap 11 mmol/L (10-20); BUN (Urea Nitrogen) 14 mg/dL (8.4-25.7); Calc. Creatinine Clearance 178 mL/min (70-130); Calcium 8.9 mg/dL (7.8-10.44); Carbon Dioxide 26 mmol/L (22-29); Chloride 102 mmol/L (98-107); Estimated GFR-MDRD Greater than 90; Glucose 122 mg/dL (70-105); Potassium 4.7 mmol/L (3.5-5.1); Sodium 134 mmol/L (136-145)
[2020-01-18] MEDS ORDERED: metroNIDAZOLE 500 MG TAB PO SCH ×2 (08:00→15:00)
[2020-01-18] MEDS ORDERED: Gabapentin 100 MG CAP PO PRN (10:51)
[2020-01-18 16:11] VITALS: BP 115/66; TEMP 97.9
--- NOTE | 2020-01-18 18:13 | PRG ---
DATE OF SERVICE: 01/18/2020 Vu Navarro is doing well. He is having minimal pain. He is ambulating with his postop shoe without difficulty. He is status post partial amputation of his great toe and second toe with primary closure. The wounds were closed. Wound care instructions; communication orders nursing to remove his dressing on Tuesday, begin washing the foot daily with soap and water in the shower or bedside, and apply antibiotic ointment and Band-Aid. He can weightbear as tolerated. The patient should follow up with me in 12 to 14 days for suture removal. He can call sooner if necessary. He should be maintained on oral antibiotics for 12 to 14 days and discharged on Cipro, doxycycline, and gabapentin. The patient is stable for discharge from my standpoint. Job ID: [id number]
--- NOTE | 2020-01-19 04:02 | DIS ---
DATE OF ADMISSION: 01/16/2020 DATE OF DISCHARGE: 01/18/2020 DISCHARGE DIAGNOSES: 1. Osteomyelitis of the left second toe. 2. Diabetes. 3. Hypertension. CONSULTATIONS: Dr. Houston with General Surgery. PROCEDURES: Status post amputation of the left second and first toe through the proximal phalanx with irrigation and primary closure on 01/16. BRIEF HISTORY OF PRESENT ILLNESS: This is a 54-year-old male with past medical history of diabetes and hypertension, who presented to the emergency room after recently leaving [place] for diagnosis of osteomyelitis. The patient had recently stepped on a nail 10 days ago and noticed that it struck his bone. He noted increasing swelling and erythema. He was admitted to the hospital for further workup. HOSPITAL COURSE: Left toe osteomyelitis: The patient had an MRI of his left toe on his last admission, which showed osteomyelitis. He was started on broad- spectrum antibiotics. He underwent amputation of his left first and second toe on 01/16. His blood cultures were negative on the . The patient was not felt to need wound care by General Surgery. I spoke with Dr. Faulkner from Infectious Disease. He recommended discharging with Cipro and doxycycline for 3 weeks. He should follow up with Dr. Faulkner in the clinic in a week. He should also follow up with Dr. Houston from General Surgery in 12 to 14 days. Diabetes: The patient states that he was only on the diabetic diet and he was not taking any metformin at home because he had not tolerated in the past. Therefore, I prescribed him glipizide on discharge instead. DISCHARGE PHYSICAL EXAMINATION: VITAL SIGNS: Temperature 97.9, heart rate 65, respiratory rate 14, O2 saturation 95% on room air, blood pressure 115/66. GENERAL: The patient is alert, awake, oriented x3. CVS: Regular rate and rhythm with no murmurs, rubs, or gallops. LUNGS: Clear to auscultation bilaterally. ABDOMEN: Positive bowel sounds, soft, nontender, nondistended. EXTREMITIES: No edema. PERTINENT LABORATORY DATA: CBC on 01/17: Normal. BMP on 01/17: Significant for mild hyponatremia of sodium 134. Hemoglobin A1c: 6.6. COVID PCR serology 01/15: Negative. DISCHARGE CONDITION: Stable. ACTIVITY: As tolerated. DIET: Diabetic diet. DISCHARGE MEDICATIONS: 1. Doxycycline 100 mg p.o. b.i.d. 2. Cipro 500 mg p.o. b.i.d. 3. Gabapentin 200 mg p.o. t.i.d. p.r.n. 4. Glipizide 5 mg p.o. daily. DISCHARGE INSTRUCTIONS: The patient should follow up with his PCP in a week. He should follow up with Dr. Houston in 12 to [address] Faulkner in 1 week. Take Cipro and doxycycline for 2 to 3 weeks. Job ID: [id number] MTDD
== END 2020-01-18 18:48 | disposition home or self-care (01) | DRG 617 ==
LOC: ERS 13:33 → SURG B 15:53 → OBSVTOIN 18:57
PROVIDERS: ADMIT Pediatrics; ATTEND Pediatrics
PROC: 0Y6Q0Z1 Detachment at Left 1st Toe, High, Open Approach (ICD-10-PCS; principal; 2020-01-17)
PROC: 0Y6S0Z1 Detachment at Left 2nd Toe, High, Open Approach (ICD-10-PCS; 2020-01-17)
DX: E11.69 Type 2 diabetes mellitus with other specified complication (principal); M86.8X7 Other osteomyelitis, ankle and foot; E87.1 Hypo-osmolality and hyponatremia; Z20.828 Contact with and (suspected) exposure to other viral communicable diseases; F12.10 Cannabis abuse, uncomplicated; E11.621 Type 2 diabetes mellitus with foot ulcer; L97.529 Non-pressure chronic ulcer of other part of left foot with unspecified severity; I10 Essential (primary) hypertension; Z88.0 Allergy status to penicillin; Z79.899 Other long term (current) drug therapy; Z87.891 Personal history of nicotine dependence
CPT/HCPCS: 36415; 36416; 80048; 80053; 80202; 83036; 85025; 85027; 85610; 85730; 86850; 86900; 86901; 87635; 88305; 88311; 96365; 96367; 96375; G0378; J0692; J1885; J2270; J2405; J2704; J3010; J3370; J3490; J7030; J7050; S0020; U0003

== ENCOUNTER 2020-08-18 09:23 | Emergency (ER) | payer SELFPAY ==
[2020-08-18 10:10] LABS: #Basophils 0.1 thou/uL (0.0-0.2); #Eosinphils 0.2 thou/uL (0.0-0.7); #Lymphocytes 1.4 thou/uL (1.20-3.40); #Monocytes 0.6 thou/uL (0.11-0.59); #Neutrophils 7.3 thou/uL (1.40-6.50); %Basophils 0.8 % (0.0-1.0); %Eosinophils 1.7 % (0.0-10.0); %Lymphocytes 14.7 % (21.0-51.0); %Monocytes 6.4 % (0.0-10.0); %Neutrophils 76.4 % (42.0-75.0); Hemoglobin 16.2 g/dL (14.0-18.0); Mean Corpuscular HGB CONC 34.3 g/dL (32.0-36.0); Mean Corpuscular Hemoglobin 29.7 pg (27.0-31.0); Mean Corpuscular Volume 86.4 fL (78.0-98.0); Mean Platelet Volume 8.7 fL (7.4-10.4); Platelet Count 234 thou/uL (130-400); RBC Distribution Width 12.8 % (11.5-14.5); Red Blood Cell (RBC) Count 5.47 mill/uL (4.70-6.10); White Blood Cell (WBC) Count 9.5 thou/uL (4.8-10.8)
--- NOTE | 2020-08-18 10:44 | RAD ---
EXAM: Single view of the chest HISTORY: Cough COMPARISON: 01/02/2018 FINDINGS: Single view of the chest shows a normal sized cardiomediastinal silhouette. There is no opal dence of consolidation, mass, or pleural effusion. Degenerative changes are seen in the spine. IMPRESSION: No evidence of acute cardiopulmonary disease
[2020-08-18 10:46] LABS: ALT (SGPT) 21 U/L (8-55); AST (SGOT) 16 U/L (5-34); Albumin 3.9 g/dL (3.5-5.0); Alkaline Phosphatase 68 U/L (40-110); Anion Gap 15 mmol/L (10-20); BUN (Urea Nitrogen) 9 mg/dL (8.4-25.7); Bilirubin, Total 0.8 mg/dL (0.2-1.2); Calc. Creatinine Clearance 0 mL/min (70-130); Calcium 8.8 mg/dL (7.8-10.44); Carbon Dioxide 25 mmol/L (22-29); Chloride 101 mmol/L (98-107); Globulin 2.4 g/dL (2.4-3.5); Glucose 225 mg/dL (70-105); Potassium 4.9 mmol/L (3.5-5.1); Protein, Total 6.3 g/dL (6.0-8.3); Sodium 136 mmol/L (136-145)
[2020-08-18 16:09] LABS: SARS-CoV-2 PCR by NAA Not Detected (NotDetected)
== END 2020-08-18 12:07 | disposition home or self-care (01) ==
LOC: ERS 09:23
DX: B34.9 Viral infection, unspecified (principal); Z20.822 Contact with and (suspected) exposure to COVID-19; E78.00 Pure hypercholesterolemia, unspecified; I10 Essential (primary) hypertension; I25.2 Old myocardial infarction
CPT/HCPCS: 36415; 71045; 80053; 83880; 84484; 85025; 85379; 87635; 93005; U0003; U0005

== ENCOUNTER 2020-12-26 06:45 | Emergency (ER) | payer SELFPAY | END 2020-12-26 07:56 | LOC: ERS 06:45 | DX: R07.9 Chest pain, unspecified (principal); I10 Essential (primary) hypertension; E78.5 Hyperlipidemia, unspecified; E11.9 Type 2 diabetes mellitus without complications; I25.2 Old myocardial infarction | CPT/HCPCS: 99284 ==